=== PATIENT | male | born 1935 | race Caucasian/White ===

== ENCOUNTER → 2017-10-07 09:52 | Outpatient (CLI) | payer MEDICARE, BC, SELFPAY ==
--- NOTE | 2017-10-07 | DI.RAD.S_ITS ---
PROCEDURE: XR CERVICAL SPINE 2V OR 3V INDICATIONS: RADICULOPATHY TECHNIQUE: 3 view(s) of the cervical spine were acquired. COMPARISON: None. FINDINGS: Bones: No fractures or dislocations to the C7 level. The lateral masses of C1 appear intact on the odontoid view. No suspicious bony lesions. Prominent degenerative changes are seen, with moderate to severe disc space narrowing at the C3-C4, C5-C6, C6-C7, and C7-T1 levels. Moderate disc space narrowing is seen at C2-C3 and C4-C5. A degree of bony bridging can be seen at each cervical level. Soft tissues: No prevertebral soft tissue swelling. The visualized lung apices are unremarkable. IMPRESSION: Prominent cervical spine degenerative changes are seen. Dictated by: Samuel Miller M.D. on 10/07/2017 at 9:58 Approved by: Samuel Miller M.D. on 10/07/2017 at 9:59
== END ==
PROVIDERS: PCP Family Medicine; Visit Provider Family Medicine
DX: M50.11 Cervical disc disorder with radiculopathy, high cervical region (principal)
CPT/HCPCS: 72040

== ENCOUNTER → 2018-07-01 09:41 | Outpatient (CLI) | payer MEDICARE, BC, SELFPAY ==
--- NOTE | 2018-07-01 | DI.NM.S_ITS ---
PROCEDURE: [place] BONE 3 PHASE RADIOPHARMACEUTICAL: 21.6 mCi Tc-99m MDP IV. INDICATIONS: STATUS POST TOTAL REPLACEMENT TECHNIQUE: Multiple bone scintigrams were obtained after intravenous injection of Tc-99m MDP, including flow, blood pool, and delayed images centered to the region of interest. COMPARISON: [place], [place], BONE SCAN THREE PHASE, 05/25/2017, 10:30. FINDINGS: Patient is status post bilateral total knee arthroplasty. Flow and blood pool images demonstrates symmetrical vascular activity around the knees with no focal area of abnormal increased uptake. Delayed phase again shows photopenia around bilateral knee joints consistent with prosthesis. Low level activity around bilateral kidneys are again seen consistent with postsurgical stress reaction. IMPRESSION: No significant changes from previous study. No nuclear medicine evidence of hardware loosening. Symmetric appearing stress reaction around bilateral knee prosthesis. Dictated by: Uriel Petit M.D. on 07/01/2018 at 16:15 Approved by: Uriel Petit M.D. on 07/01/2018 at 16:18
== END ==
PROVIDERS: PCP Family Medicine; Visit Provider Orthopaedic Surgery
DX: M25.552 Pain in left hip (principal); Z96.653 Presence of artificial knee joint, bilateral; Z96.642 Presence of left artificial hip joint
CPT/HCPCS: 78315; A9503

== ENCOUNTER → 2021-12-16 12:18 | Outpatient (CLI) | payer MEDICARE, BC, SELFPAY ==
--- NOTE | 2021-12-16 12:20 | DI.MRI.S_ITS ---
PROCEDURE: MR FEMUR LT WO CON INDICATIONS: LEFT IT BAND SYNDROME TECHNIQUE: Noncontrast coronal, axial, and sagittal T1 spin echo and STIR through the left femur. COMPARISON: [place], [place], [place] BONE 3 PHASE, 07/01/2018, 10:02. [facility] [place], [place], XR PELVIS WITH LATERAL HIP LEFT, 04/28/2021, 14:24. FINDINGS: Image quality: Images are mildly degraded by expected metal artifact related to the left hip and bilateral knee prostheses despite the use of metal artifact reduction sequences. Diagnostic information is obtained. Bones: Postsurgical changes are seen from left total hip arthroplasty with expected metal artifact despite the use of metal artifact reduction sequences. Mild contour abnormality is seen along the fibular shaft at the level of the distal prosthesis tip. There is surrounding T2 weighted hyperintense periosteal signal at the same level. No discrete fracture line is seen. The distal femoral shaft is normal in signal intensity. Postsurgical changes also seen from bilateral knee arthroplasties with associated metal artifact. Degenerative changes are seen in the right hip. Soft tissues: Mild T2-hyperintense signal is seen within the left biceps femoris muscle as well as the vastus lateralis muscle. There is grade 2 fatty infiltration of the semimembranosus muscle. Increased T2-weighted signal is also seen within the anterior tibialis muscle. There is a moderate left knee effusion. No large left hip effusion or periarticular mass identified given metal artifact. Multiple diverticula are seen within the included colon. IMPRESSION: 1. Postsurgical changes from left hip arthroplasty with expected metal artifact that obscures adjacent structures. Mild cortical contour abnormality is seen in the left femoral shaft at the level of the distal femoral tip with mild surrounding periosteal new bone formation. Findings are suspicious for loosening of the femoral prosthesis with osseous remodeling. No definite osseous fracture identified. 2. [id number] signal within the lateral left thigh musculature may be reactive or secondary to low-grade muscle strains versus possibly mild or early denervation changes. No mass is seen along the course of the sciatic nerve. 3. No significant fluid or edema along the iliotibial band. 4. Postsurgical changes from bilateral knee arthroplasties. Moderate nonspecific left knee effusion. 5. Moderate to severe right hip osteoarthrosis. Dictated by: Andrei Roberts M.D. on 12/16/2021 at 14:32 Approved by: Andrei Roberts M.D. on 12/16/2021 at 14:44
== END ==
PROVIDERS: PCP Family Medicine; Referring Provider Physical Medicine & Rehabilitation; Visit Provider Physical Medicine & Rehabilitation
DX: M76.32 Iliotibial band syndrome, left leg (principal); M16.11 Unilateral primary osteoarthritis, right hip; Z96.642 Presence of left artificial hip joint
CPT/HCPCS: 73718

== ENCOUNTER 2023-01-13 22:08 | Emergency (ER) | payer MEDICARE, BC, SELFPAY ==
--- NOTE | 2023-01-13 22:09 | DI.CT.S_ITS ---
PROCEDURE: CT CERVICAL SPINE WO CON INDICATIONS: fall with head injury TECHNIQUE: Noncontrast 3 mm thick sections acquired from the skull base to the T4 level. Sagittal and coronal reformats were then constructed. For radiation dose reduction, the following was used: automated exposure control, adjustment of mA and/or kV according to patient size. COMPARISON: None. FINDINGS: Bones: Multilevel degenerative changes of the cervical spine. No acute cervical spine fracture identified Soft tissues: Prevertebral soft tissues are normal in thickness. No paravertebral hematomas. No apical pneumothoraces. IMPRESSION: No acute cervical spine fracture identified Dictated by: Andrei Jackson M.D. on 01/13/2023 at 23:01 Approved by: Andrei Jackson M.D. on 01/13/2023 at 23:05
--- NOTE | 2023-01-13 22:09 | DI.CT.S_ITS ---
PROCEDURE: CT FACIAL BONES WO CON INDICATIONS: fall with head/face injury TECHNIQUE: Noncontrast 2.5 mm thick axial images acquired from the mandible through the frontal sinuses, with coronal and sagittal reformatting. For radiation dose reduction, the following was used: automated exposure control, adjustment of mA and/or kV according to patient size. COMPARISON: [facility], CT, CT HEAD/BRAIN WO CON, 01/13/2023, 22:14. FINDINGS: Bones and teeth: Acute appearing minimally displaced nasal arch fracture. Orbital wolff are intact. Sinus wolff show no fracture or deformity. Visualized portions of the mandible demonstrate no fractures or subluxation. Zygomatic arches are intact. Pterygoid plates are intact. Sinuses: Paranasal sinuses are aerated, without fluid levels. Mastoid air cells are aerated. IMPRESSION: Acute appearing minimally displaced nasal arch fracture. Dictated by: Andrei Jackson M.D. on 01/13/2023 at 22:56 Approved by: Andrei Jackson M.D. on 01/13/2023 at 23:01
--- NOTE | 2023-01-13 22:09 | DI.CT.S_ITS ---
PROCEDURE: CT HEAD/BRAIN WO CON INDICATIONS: fall with head injury TECHNIQUE: Noncontrast 4.5 mm thick angled axial sections acquired from the foramen magnum to the vertex, with coronal and sagittal reformats. For radiation dose reduction, the following was used: automated exposure control, adjustment of mA and/or kV according to patient size. COMPARISON: None. FINDINGS: CSF spaces: Basal cisterns are patent. No extra-axial fluid collections. The ventricles are symmetric in size and shape. Brain: No intracranial bleeds or masses. There is cerebral volume loss for age, with resultant ventricular and sulcal prominence. There are periventricular and deep white matter chronic small vessel ischemic changes. There is intracranial internal carotid artery atherosclerosis. Skull and face: Calvarium appear intact, without suspicious lesions. Sinuses: Visualized sinuses and mastoids are clear. IMPRESSION: No intracranial hemorrhage or other acute intracranial abnormality. Dictated by: Andrei Jackson M.D. on 01/13/2023 at 22:40 Approved by: Andrei Jackson M.D. on 01/13/2023 at 22:45
[2023-01-13 22:10] VITALS: BP 168/88
[2023-01-13 22:11] VITALS: PULSE 73; O2SAT 94
[2023-01-13 22:15] VITALS: BP 168/88; PULSE 71; RESP 17; TEMP 36.3; O2SAT 94; BMI 30.1
[2023-01-13 22:30] VITALS: BP 154/82; PULSE 66; RESP 22; O2SAT 97
--- NOTE | 2023-01-13 22:57 | DI.RAD.S_ITS ---
PROCEDURE: XR WRIST RT 2V INDICATIONS: fall with pain in right wrist TECHNIQUE: 2 views of the wrist were acquired. COMPARISON: None. FINDINGS: Bones: Acute minimally displaced fracture of distal ulna. First CMC and STT joint degenerative changes present. Soft tissues: No suspicious soft tissue calcifications. IMPRESSION: Acute minimally displaced distal ulnar fracture. Dictated by: Andrei Jackson M.D. on 01/14/2023 at 0:23 Approved by: Andrei Jackson M.D. on 01/14/2023 at 0:29
[2023-01-13 23:00] VITALS: BP 150/83; PULSE 66; RESP 19; O2SAT 97
[2023-01-13 23:30] VITALS: BP 152/84; PULSE 67; RESP 26
[2023-01-13] MEDS: LIDOCAINE 2% W/EPI INJ 20 ML (23:44)
--- NOTE | 2023-01-13 23:51 | ED.FALL ---
HPI - Fall General Chief Complaint: Fall Stated Complaint: GLF Time Seen by Provider: 01/13/23 22:09 Source: patient and EMS Mode of arrival: EMS History of Present Illness HPI Narrative: 79-year-old male former smoker presents by EMS for evaluation of injury suffered as a consequence of a mechanical ground level fall just prior to arrival. He states that he was walking outside and got his feet caught up under him and fell forward and struck his face on the ground. He does not take anticoagulants and did not lose consciousness. He is had no nausea or vomiting and is not confused. He denies headache or blurred vision or trouble with speech. He has no neck or back pain. He denies shoulder or elbow pain. He does have some right wrist pain. He is activated as a modified trauma given age and fall with suspected injury Related Data Previous Rx's Medication Instructions Recorded cephalexin 500 mg capsule 500 mg PO Q6H 7 days #28 caps 01/14/23 Allergies Allergy/AdvReac Type Severity Reaction Status Date / Time No Known Drug Allergies Allergy Verified 01/13/23 22:16 Review of Systems Review of Systems Narrative: GENERAL: Denies chills, fatigue, malaise, fever, sweats. HEENT: Denies sinus pain, ear pain, sore throat, difficulty swallowing, dizziness. RESPIRATORY: Denies dyspnea, cough, wheezing, hemoptysis, sputum. CARDIOVASCULAR: Denies chest pain, palpitations, orthopnea, edema, GASTROINTESTINAL: Denies nausea, vomiting, abdominal pain, diarrhea, constipation, melena. : Denies dysuria, frequency, incontinence, hematuria, urinary retention. MUSCULOSKELETAL: See HPI SKIN: Denies rash, skin lesions, or other NEUROLOGIC: Denies weakness, headache, numbness, change in speech, confusion, seizures, incoordination. PSYCHIATRIC: No concerning psychosocial issues. 12 point review of systems is negative except for those stated above Patient History Social History Smoking Status: Former smoker Smoking Status: Former smoker alcohol intake frequency: a few times a week Substance Use Type: does not use Exam Narrative Exam Narrative: GENERAL: [87] year old patient appears stated age. Well-developed patient, in mild distress. GCS 15 though he is hard of hearing HEAD: Abrasions on forehead, a 4 cm stellate shaped laceration in the central forehead and a smaller 0.5 cm laceration over the bridge of the nose EYES: Pupils equal round and reactive. No hyphema Extraocular motions intact. No scleral icterus. No injection or drainage. ENT: Dried blood in bilateral nares, no nasal septal hematoma, no obvious deformity, he is able to breathe through both nostrils. Throat without erythema, tonsillar hypertrophy or exudate. Airway patent. NECK: Trachea midline. Non tender, in C-collar CARDIOVASCULAR: Regular rate and rhythm without murmurs, gallops, or rubs. RESPIRATORY: Clear to auscultation. Breath sounds equal bilaterally. No wheezes, rales, or rhonchi. GASTROINTESTINAL: Abdomen soft, non-tender, nondistended. EXTREMITIES: Full but painful range of motion of right wrist with no obvious deformity No edema or joint tenderness. BACK: Nontender without deformity or crepitance. No flank tenderness. NEURO: AOx3. SKIN: No rash or erythema of visible areas Initial Vital Signs Initial Vital Signs: Vital Signs Temperature 97.4 F L 01/13/23 22:15 Pulse Rate 71 01/13/23 22:15 Respiratory Rate 17 01/13/23 22:15 Blood Pressure 168/88 H 01/13/23 22:15 Pulse Oximetry 94 01/13/23 22:15 Oxygen Delivery Method Room Air 01/13/23 22:15 Procedures Laceration Repair Laceration 1: Site: face Size (cm): 4 Description: stellate Depth: simple, single layer Local Anesthetic: lidocaine 1% Amount of anesthesia used (mL): 4 Pre-repair: wound explored and cleansed with chlorhexadine Skin layer closed with: nylon Skin layer suture size: 6-0 Number of sutures: 6 Technique: simple, interrupted Laceration 2: Site: face (bridge of nose) Size (cm): 0.5 Description: linear Depth: simple, single layer Local Anesthetic: lidocaine 1% Amount of anesthesia used (mL): 2 Pre-repair: wound explored and cleansed with chlorhexadine Skin layer closed with: nylon Skin layer suture size: 6-0 Number of sutures: 1 Technique: simple, interrupted Orthopedic Splinting/Casting Injury #1: Side: right Upper Extremity Injury Location: wrist Upper Extremity Immobilizer: sugar tong splint Post splinting neuro exam: intact Post splinting vascular exam: intact Placed by: Nursing Course Orders Ordered: ED Orders 01/13/23 22:09 CT cervical spine wo con Stat CT facial bones wo con Stat CT head/brain wo con Stat 01/13/23 22:57 XR wrist RT 2V Stat Vital Signs Vital signs: Vital Signs - 8 hr 01/13/23 22:15 Temperature 97.4 F L Pulse Rate 71 Respiratory Rate 17 Blood Pressure 168/88 H Pulse Oximetry 94 Oxygen Delivery Method Room Air MDM - Fall MDM Narrative Medical decision making narrative: [87] year old patient presents with minor injuries from fall Multiple etiologies for patient's symptoms considered including, but not limited to: [Intracranial hemorrhage versus skull fracture versus nasal fracture versus lacerations versus wrist fracture versus contusion versus sprain versus other] Prior Charts reviewed in our EMR Primary Historian: patient Imaging reviewed: CT of head without intracranial hemorrhage, C-spine without fracture or dislocation, facial bones notes nasal bone fracture Patient with reassuring history and physical exam, no significant injuries, there is a small laceration overlying the nasal fracture hence the decision to put him on antibiotics. He is awake, alert and oriented and appropriate for discharge Findings and discharge diagnosis discussed with patient/family followed by verbalization of understanding Return precautions discussed with patient/family whom verbalize understanding of diagnosis and plan Discharge Plan Departure Patient Disposition: Home Clinical Impression: Complex laceration of face, Open fracture nasal bone, Fracture of distal end of ulna Instructions: How to Prevent Falls Activity Restrictions/Additional Instructions: *You have been diagnosed with [fall with facial laceration and small open nasal fracture, also small nondisplaced right distal ulna fracture *What to do: *Please continue to take your regular medications as directed. [x ] New medication prescriptions sent to your pharmacy: [Maint ] [ ] New medication written as a paper prescription [ ] No new medications given * Please keep the wound clean and dry to the best of your ability. Please monitor for signs of infection such as redness to the skin or increasing pain. Have the sutures/adrian removed by your doctor in about 7 days. If you are unable to get into your doctor, we would be happy to remove the sutures/adrian in that same timeframe. *Please follow up with [Marita ] of [facility] in 2-3 days, call for an appointment. Let them know you were seen in the Emergency Department and that we ask that you be seen in follow up. We will electronically transmit a record of today's note if your PCP is in our system *Return to Emergency Department if you should have any new, worsening or concerning symptoms, such as [worsening pain, significant swelling, cold extremities, numbness, tingling, weakness or other bothersome symptoms Splint Care: Keep splint clean and dry. Elevated affected body part to decrease swelling. OK to use ice pack on the affected body part. Use for 15-20 minutes each time, for 5-6x per day. If you develop worsening pain, numbness, tingling, discoloration of the affected body part, loosen the splint by loosening the ODIN wrap, and either see your doctor for an urgent re-assessment, or return to the Emergency Department. Return to the Emergency Department for any new or worsening symptoms. Prescriptions: New cephalexin 500 mg capsule 500 mg PO Q6H 7 Days Qty: 28 0RF Referrals: Rock Montenegro DO [Primary Care Provider] - Dean Kirkland MD [Physician] - Stand Alone Forms: Patient Portal/API
[2023-01-14] VITALS: BP 151/82; PULSE 67; RESP 22; O2SAT 99
[2023-01-14 00:30] VITALS: BP 149/83; PULSE 65; RESP 24; O2SAT 97
[2023-01-14 01:00] VITALS: BP 140/68; PULSE 64; RESP 21; O2SAT 97
[2023-01-14 01:13] VITALS: TEMP 36.6
== END 2023-01-14 01:15 | disposition home or self-care (01) ==
PROVIDERS: Emergency Provider Emergency Medicine; PCP Family Medicine
DX: S02.2XXA Fracture of nasal bones, initial encounter for closed fracture (principal); S01.21XA Laceration without foreign body of nose, initial encounter; S52.601A Unspecified fracture of lower end of right ulna, initial encounter for closed fracture; W18.30XA Fall on same level, unspecified, initial encounter
CPT/HCPCS: 12013; 29125; 70450; 70486; 72125; 73100; 99282; 99284

== ENCOUNTER → 2023-03-10 10:34 | Outpatient (CLI) | payer MEDICARE, BC, SELFPAY ==
[2023-03-10 11:40] LABS: C-Reactive Protein Quant 0.7 mg/dL (<1.0); Erythrocyte Sedimentation Rate 3 MM/HR (0-15)
== END ==
PROVIDERS: PCP Family Medicine; Referring Provider Orthopaedic Surgery Adult Reconstructive Orthopaedic Surgery; Visit Provider Orthopaedic Surgery Adult Reconstructive Orthopaedic Surgery
DX: R70.0 Elevated erythrocyte sedimentation rate (principal); R79.82 Elevated C-reactive protein (CRP)
CPT/HCPCS: 36415; 85651; 86140

== ENCOUNTER → 2023-03-24 10:44 | Outpatient (CLI) | payer MEDICARE, BC, SELFPAY ==
[2023-03-24 11:40] LABS: Add Manual Diff / Slide Review NO; Basophils Absolute Auto 0 /uL (0-100); Basophils Percent Auto 0.4 % (0-2); Eosinophils Absolute Auto 0 /uL (0-450); Eosinophils Percent Auto 1.4 % (2-4); Hematocrit 36.7 % (41-53); Hemoglobin 12.3 g/dL (13.5-17.5); Lymphocytes Absolute Auto 400 /uL (1100-4500); Lymphocytes Percent Auto 12.5 % (25-40); Mean Corpuscular HGB Conc 33.5 % (30-36); Mean Corpuscular Hemoglobin 29.4 PG (26-34); Mean Corpuscular Volume 87.7 fL (80-100); Monocytes Absolute Auto 300 /uL (0-900); Monocytes Percent Auto 9.1 % (3-14); Neutrophils Absolute Auto 2100 /uL (1500-7000); Neutrophils Percent Auto 76.6 % (50-75); Platelet Count 155 X10^3/uL (150-400); Red Blood Cell Count 4.19 X10^6/uL (4.5-5.9); Red Cell Distribution Width 15.3 % (11.6-14.8); White Blood Cell Count 2.8 X10^3/uL (4.5-11.0)
[2023-03-24 12:00] LABS: Hemoglobin A1C% w Est Avg Glu 5.3 % (4.0-6.0)
[2023-03-24 12:06] LABS: Erythrocyte Sedimentation Rate 4 MM/HR (0-15)
[2023-03-24 13:51] LABS: Albumin 4.2 g/dL (3.5-5.0); BUN Creatinine Ratio 24.7 (6-22); Blood Urea Nitrogen 19 mg/dL (9-20); Calcium 9.2 mg/dL (8.4-10.2); Carbon Dioxide 27 mmol/L (22-32); Chloride 105 mmol/L (98-107); Estimated Glomerular Filt Rate > 60 mL/min (>60); Glucose 93 mg/dL (80-110); HEMOLYSIS < 15 (0-50); Potassium 4.2 mmol/L (3.4-5.1); Sodium 139 mmol/L (137-145)
[2023-03-24 13:59] LABS: Prealbumin 16.7 mg/dL (17.6-36.0)
== END ==
PROVIDERS: PCP Family Medicine; Referring Provider Orthopaedic Surgery Adult Reconstructive Orthopaedic Surgery; Visit Provider Orthopaedic Surgery Adult Reconstructive Orthopaedic Surgery
DX: Z01.818 Encounter for other preprocedural examination (principal); E55.9 Vitamin D deficiency, unspecified; R73.9 Hyperglycemia, unspecified; R77.0 Abnormality of albumin; Z01.812 Encounter for preprocedural laboratory examination; R70.0 Elevated erythrocyte sedimentation rate; R79.82 Elevated C-reactive protein (CRP)
CPT/HCPCS: 36415; 80048; 82040; 82306; 83036; 84134; 85025; 85651; 86140; 93005

== ENCOUNTER → 2023-04-12 12:56 | Outpatient (CLI) | payer MEDICARE, BC, SELFPAY | PROVIDERS: PCP Family Medicine; Referring Provider Orthopaedic Surgery Adult Reconstructive Orthopaedic Surgery; Visit Provider Orthopaedic Surgery Adult Reconstructive Orthopaedic Surgery | DX: T56.2X4A Toxic effect of chromium and its compounds, undetermined, initial encounter (principal) | CPT/HCPCS: 36415; 82495; 83018 ==

== ENCOUNTER 2023-04-30 11:50 | Inpatient (IN) | payer MEDICARE, BC, SELFPAY ==
[2023-04-22 12:39] VITALS: BMI 30.4
[2023-04-30] VITALS (20 sets, daily range): BP systolic 92–148; BP diastolic 49–83; PULSE 61–73; RESP 13–21; TEMP 35.7–36.3; O2SAT 94–99; BMI 30.4; BMI 28.9
--- NOTE | 2023-04-30 | DI.RAD.S_ITS ---
PROCEDURE: XR HIP W PEL IF DONE LT 2V INDICATIONS: TOTAL HIP REVISION TECHNIQUE: 4 views of the hip were acquired. COMPARISON: [facility], CR, XR HIP W PEL IF DONE LT 2V, 04/30/2023, 14:39. [facility] [place], [place], XR FEMUR 2+ VIEWS LEFT, 04/29/2023, 11:03. FINDINGS: Bones: Moderate right hip arthrosis, partially seen. Left hip arthroplasty revision, with expected positioning, with lucency of the central left femur and with surrounding bone fragments. Soft tissues: Postsurgical changes. IMPRESSION: Postsurgical changes following left hip arthroplasty revision. Dictated by: Kranthi Zuniga M.D. on 04/30/2023 at 21:12 Approved by: Kranthi Zuniga M.D. on 04/30/2023 at 21:14
--- NOTE | 2023-04-30 06:00 | DI.RAD.S_ITS ---
PROCEDURE: XR HIP W PEL IF DONE LT 2V INDICATIONS: intra op TECHNIQUE: Multiple views of the hip were acquired. COMPARISON: None. Findings and impression: Multiple intraoperative fluoroscopic images were obtained for left hip arthroplasty revision. Please see operative note for full details. Dictated by: Kranthi Zuniga M.D. on 04/30/2023 at 21:34 Approved by: Kranthi Zuniga M.D. on 04/30/2023 at 21:35
[2023-04-30] MEDS: ACETAMINOPHEN 325 MG TABLET 975 MG PO (12:41)
[2023-04-30] MEDS: MELOXICAM 7.5 MG TABLET PO (12:42)
[2023-04-30] MEDS: LACTATED RINGERS 1,000 ML 42 ML IV ×4 (12:44→16:57)
[2023-04-30] MEDS: VANCOMYCIN 1,000 MG/200 ML PIGGYBACK 200 MG IV (13:00)
--- NOTE | 2023-04-30 13:05 | PM.PREOP ---
Pre-operative Note Interval Note History & Physical reviewed/Exam performed by Physician: Yes Changes to H&P: No
[2023-04-30] MEDS: CEFAZOLIN 2 GM/100 ML PREMIX 100 ML IV (14:00)
[2023-04-30] MEDS: TRANEXAMIC ACID 1,000 MG VIAL 1000 MG INJ ×2 (14:05→18:40)
--- NOTE | 2023-04-30 14:41 | SUR.OPER ---
Patient supine on padded [place] table, one arm on padded arm board at <90, other arm padded and secured with tape across patient's chest, both legs secured in padded traction boots and positioned per surgeon, padded post at patient's groin, pressure points checked and padded.
[2023-04-30] MEDS: ROPIVACAINE/EPI/CLONIDINE/KET 50 ML SYRINGE INJ (14:50)
[2023-04-30] MEDS: CEFAZOLIN VIAL 1 GM in SODIUM CHLORIDE 0.9% 100 ML IV (18:00)
[2023-04-30 19:04] LABS: Hematocrit 30.9 % (41-53); Hemoglobin 10.5 g/dL (13.5-17.5); Mean Corpuscular HGB Conc 33.9 % (30-36); Mean Corpuscular Hemoglobin 29.4 PG (26-34); Mean Corpuscular Volume 86.6 fL (80-100); Platelet Count 131 X10^3/uL (150-400); Red Blood Cell Count 3.56 X10^6/uL (4.5-5.9); Red Cell Distribution Width 15.2 % (11.6-14.8); White Blood Cell Count 7.1 X10^3/uL (4.5-11.0)
--- NOTE | 2023-04-30 20:15 | PM.OP.1 ---
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 Revision left total hip arthroplasty with acetabular component liner exchange from polyethylene to modular dual mobility and femoral stem exchange 2. Fixation of left femoral fracture with cerclage cables Same procedure as scheduled: No Surgeon: Dean Kirkland Seat Maker: Valentine Farrar Anesthesia Type: General, Spinal and Local Operative Notes Findings: Trunnionosis with metal debris and displaced femoral fracture Estimated Blood Loss (mL): 1,450 Blood products transfused: packed red blood cells Procedure in detail: This 87-year-old male patient initially presented to my clinic with an ulna fracture. I cared for the ulna fracture with cast treatment. During follow-up for his ulna fracture he mentioned difficulties using a walker. He stated that he used a walker because of severe pain in his left thigh after a total knee arthroplasty and a subsequent revision for thigh pain with polyethylene component exchange. I reviewed his knee radiographs at that time which showed an appropriately sized and fixed total knee arthroplasty but an obvious left shorter than right limb length discrepancy on his AP x-ray relative to his other knee. I therefore evaluated his hip radiographs which showed gross loosening of his femoral stem. I counseled him regarding this issue and discussed treatment options with him. I met with him and his family on multiple occasions. He had severe pain secondary to this issue which worsened over the course of my visits with him. He is very active for his age and has maintained significant independence. As an example of this, his family on multiple occasions during his visits with me for his ulna fracture explained to me that their biggest challenge with him was getting him to stop helping with things like yard work while he was allowing his wrist to heal. He had had the surgery done in 2010 at an outside institution. I obtained operative records from that surgery. He had had a MicroPort cup placed with a [place] stem. He had a 44 mm cobalt chromium head. 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 I did obtain inflammatory markers to rule out infection which were normal. I had multiple occasions with him and his family explained the risks and benefits of revision surgery. They wished to proceed. I had him come into clinic the day before the procedure to obtain additional radiographs and these demonstrated progression of a crack in the femur just below the calcar. Review of his prior radiographs demonstrated that this had clearly progressed into progressive varus over time. The patient and his family were met in the preoperative holding area the day of surgery. Additional questions were answered. Informed consent was signed. The operative site was marked. He was wheeled back to the operating room and placed supine on the [place] table. The assistance of a physician physical laboratory assistant was required throughout the case for room set up, soft tissue retraction, wound closure. Without the assistance of a skilled physician physical laboratory assistant the surgery would not have been possible. A Carmichael catheter was placed given the anticipated duration of the surgery. Spinal anesthesia was utilized but general anesthesia was still induced again given the anticipated duration of the surgery. The surgical site was prepped and draped in the usual sterile fashion. Ancef and tranexamic acid were administered. A time-out procedure was performed. I utilized an anterior approach to the hip. I opened up the interval between the rectus and the TFL. I extended this up to the pelvis and released the TFL off of the ilium. I placed retractors over the prosthetic neck inferiorly and superiorly and coagulated the lateral circumflex vessels. I performed a capsulotomy and placed the retractors intracapsularly. I placed tag stitches in the capsule. I noted that there was a calcar fracture consistent with the preoperative radiographs. It displaced prior to me performing any sort of significant manipulation on the hip. I resected abundant scar around the prosthesis. I sent some of this for culture. It had an appearance consistent with metal debris and I noted significant corrosion on the trunnion. I was able to manually disengage the trunnion from the femoral head by internally rotating the hip and impacting it with a mallet. It was unclear whether the Barrera taper was still engaged as the femoral head disengaged extremely easily. I then removed the femoral head from inside the acetabular component. I placed a [place] hook under the proximal femur and hyperextended and adducted the leg. I performed a conjoined tendon release to allow greater mobility. I resected additional scar around the femoral stem. The hip was externally rotated to 140? and retractors were placed over the greater trochanter as well as over the femoral shaft distal to the calcar fracture. Because of the calcar fracture it took a fair amount of time to manipulate the stem into an appropriate position. I was eventually able to position it with an appropriate trajectory for stem removal. The stem was grossly loose and I was able to pull it out with a pair of vice chemical reclamation equipment operator. I then returned to neutral extension and exposed the acetabular component. I placed a retractor over the anterior wall as well as the posterior wall. I used an osteotome to remove the old 44 mm MicroPort polyethylene liner. I did not note any significant metallosis behind the liner in the acetabular component. I vigorously tested the acetabular component and found that it had good stability. I was satisfied with the positioning of the prior cup. I placed a MicroPort modular dual mobility liner. I then returned to the broaching position and placed retractors over the greater trochanter and over the femoral shaft distal to the calcar fracture which had been present preoperatively. I attempted to pass a ball-tipped guidewire down the canal but it consistently fell into the lateral defect where the stem had tipped into varus and eroded the lateral cortex. I placed a bend on the guidewire and attempted to tap this down medially but it ran into a pedestal. I therefore utilized a cement extraction tool which had a long curved end in order to enrique that pedestal under fluoroscopic guidance. I was able to create a hole in the pedestal and then passed the ball-tipped guidewire through that hole. Again under fluoroscopic guidance I passed flexible reamers down to the femoral diaphysis bypassing the area where the stem had eroded the lateral cortex. I used flexible reamers from 8 mm increasing by 1 mm increments up to 16 mm. I then transitioned to rigid reamers for the Depuy reclaim distal body. I began with a 14 mm Reamer and reamed up by 1 mm increments to 21 mm. I used fluoroscopic guidance throughout this process to ensure that I was aiming down the canal and not drifting into the lateral defect in the cortex. I achieved good chatter with the 21 mm Reamer. I was utilizing the 190 mm Reamer and noted that this intersected the tip of the greater trochanter at 105 mm, representing the longest proximal body. I irrigated the femoral canal and impacted down a 21 mm x 190 mm distal stem. I utilized fluoroscopy to ensure that I had impacted all the way down. It achieved robust fixation. I utilized a proximal Reamer to prepare the area around the greater trochanter for a proximal body. I placed a 105 mm trial proximal body with a +1.5 head and a dual mobility trial on the distal body and removed all retractors. I returned to neutral extension and attempted to reduce the hip. There was too much tension and I could not reduce it. I therefore returned to the broaching position and downsized to a 95 mm proximal body. I was able to reduce the hip with that size proximal body. The patient had a 5 cm limb length discrepancy preoperatively. I intended to correct as much of this as possible as this was entirely due to the stem loosening secondary to metallosis. I had radiographs from 2017 indicating appropriate limb lengths at that time. As all of this shortening had occurred over the subsequent years, I felt that the patient would be able to accommodate appropriate limb lengths without sustaining a foot drop. I brought in fluoroscopy for evaluation of my trials. I was unable to assess leg length through the lesser trochanter because of his calcar fracture which had been present preoperatively. I therefore placed a guidewire and measured the relative heights of the greater trochanters. I obtained fluoroscopic images with the guidewire at the height of both the contralateral and ipsilateral greater trochanter and gauged this against the obliquity of the pelvis. It appeared that this was grossly parallel to a trans ischial line, indicating that leg length was likely grossly appropriate. Offset likewise appeared appropriate. The patient's hip was stable with 90? of external rotation as well as with a 45 degree drop test. I therefore returned to the broaching position, ensuring that traction was off before hyperextended the hip, and removed the trials. I placed a 95 mm proximal body with a standard offset neck. I placed this with the hip in 140? of external rotation and ensured appropriate version. I constructed a dual mobility head with a Depuy 28 mm +1.5 head inside of a MicroPort 46 mm dual mobility outer diameter polyethylene. I ensured that the ceramic head and the dual mobility head had made it appropriately. I impacted the dual mobility head onto a clean dry trunnion. I ensured that it had engaged the Barrera taper appropriately. All retractors were removed and the hip was returned to neutral extension. The hip was reduced. I again tested stability with maximum external rotation and a 45 degree drop test. I also again assessed the femoral canal fill on AP and lateral fluoroscopic images. I then turned my attention to the calcar fracture. It was significantly displaced. There were soft tissue attachments remaining on it which were under significant tension. I passed 2 cerclage cables around the fracture and around the lateral femoral shaft. I tensioned both of these. I vigorously internally and externally rotated the hip to ensure that it maintained good stability. I was satisfied with the stability of the fixation. I obtained final fluoroscopic images demonstrating that the calcar fragment had been captured as well as the final construct. I bathed the wound in a dilute mixture of Betadine and peroxide. I copiously irrigated the wound. I closed the capsule with Vicryl. I closed the TFL fascia including the TFL release that had been performed on the ilium with Stratafix. I closed the fat layer with Quill. I closed the subcutaneous tissues with 2-0 Vicryl. I injected a dilute mixture of ropivacaine epinephrine clonidine and Toradol throughout the wound, ensuring that it remained deep to fascia. I closed the skin with 3-0 Stratafix. I placed Dermabond over the wound. I placed a yung incisional wound VAC. the patient was transferred off of the [place] table onto a stretcher. He awoke from anesthesia without complication. I evaluated him in the PACU and noted intact dorsiflexion and plantar flexion of his hallux and ankle as well as a good dorsalis pedis pulse. Post-operative Plan for aftercare: 1. Patient will be admitted tonight to the ICU. Given the blood loss from the procedure and his age, this will allow better hemodynamic monitoring 2. Weightbearing as tolerated with anterior hip precautions 3. Family is requesting home health physical therapy which I will work with social work to set up 4. Anticipate eventual discharge home 5. Will obtain a CBC in the morning 6. Follow up in 2 weeks at [facility] orthopedics 7. Multimodal pain regimen including NSAIDs, acetaminophen, and cryotherapy. No IV opioids are ordered 8. Detailed postoperative instructions can be found at [email or web address]
--- NOTE | 2023-04-30 22:19 | PM.CN.EICU ---
History of Present Illness Consult details IF CAMERA ACTIVATED, patient seen via real-time interactive audiovisual communication: Camera activated Date Patient Seen: 04/30/23 Chief complaint: INPT Consent obtained for tele-coordinate measuring machine technician care: Yes Patient Location: ICU Provider location (State): [place] Other participants/roles: RN Narrative: 87 y.o. male who is POD #0 from left total hip arthroplasty and left femoral fracture fixation. Patient was hypotensive in PACU w/ non-invasive SBP in 90s and therefore was upgraded to ICU status for post-op observation. He has a previous total L hip arthroplasty in 2010. A/O x3 on RA; hemodynamically stable w/ SBP 130s on initial camera evaluation. 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) History of total left knee replacement (08/18/05) History of total left hip replacement (05/13/10) Social History household members: none Smoking Status: Former smoker alcohol intake: former Current Medications Current Medications Medications: Home Medications amlodipine 5 mg tablet 5 mg PO DAILY 04/22/23 [History Confirmed 04/22/23] atorvastatin 20 mg tablet 20 mg PO BEDTIME 04/22/23 [History Confirmed 04/30/23] desloratadine 5 mg tablet (Clarinex) 5 mg PO DAILY 04/22/23 [History Confirmed 04/22/23] donepezil 5 mg tablet 5 mg PO DAILY 04/22/23 [History Confirmed 04/30/23] finasteride 1 mg tablet 1 mg PO DAILY 04/22/23 [History Confirmed 04/30/23] ibuprofen 200 mg tablet 200 mg PO TID 04/22/23 [History Confirmed 04/30/23] meloxicam 15 mg tablet 15 mg PO DAILY 04/22/23 [History Confirmed 04/30/23] memantine 5 mg tablet 5 mg PO BID 04/22/23 [History Confirmed 04/22/23] sertraline 25 mg tablet 25 mg PO DAILY 04/22/23 [History Confirmed 04/22/23] tamsulosin 0.4 mg capsule 0.8 mg PO BID 04/22/23 [History Confirmed 04/22/23] amlodipine 5 mg tablet 5 mg PO DAILY 04/30/23 [History Confirmed 04/30/23] Visit Medications (administered) Generic Name Dose Route Start Last Admin Trade Name Freq PRN Reason Stop Dose Admin Lactated Ringer's 1,000 mls @ 42 mls/hr 04/29/23 20:30 04/30/23 20:49 Lactated Ringers IV Infused CONT SHELBI Infusion Review of Systems Constitutional Constitutional: Reports system reviewed and no additional complaints, except as documented Gastrointestinal Gastrointestinal: Reports other (no nausea) Exam Vital Signs (past 8 hours): - 04/30/23 19:18 04/30/23 19:18 04/30/23 19:20 Temperature 97.1 F L 97.3 F L Pulse Rate 63 65 73 Respiratory Rate 17 21 16 Blood Pressure 92/53 L 94/51 L 96/49 L Pulse Oximetry 96 94 Oxygen Delivery Method Room Air 04/30/23 19:23 04/30/23 19:28 04/30/23 19:34 Temperature Pulse Rate 64 61 73 Respiratory Rate 13 13 16 Blood Pressure 103/54 L 103/54 L 96/49 L Pulse Oximetry 96 96 94 Oxygen Delivery Method 04/30/23 19:40 04/30/23 19:45 04/30/23 19:50 Temperature Pulse Rate 63 62 63 Respiratory Rate 17 19 20 Blood Pressure 92/53 L 99/53 L 97/56 L Pulse Oximetry 96 96 97 Oxygen Delivery Method Room Air 04/30/23 20:00 04/30/23 20:10 04/30/23 20:19 Temperature Pulse Rate 62 63 64 Respiratory Rate 20 17 16 Blood Pressure 101/55 L 115/60 116/62 Pulse Oximetry 98 98 97 Oxygen Delivery Method Room Air Room Air Room Air 04/30/23 20:30 04/30/23 20:40 04/30/23 20:50 Temperature Pulse Rate 66 65 72 Respiratory Rate 21 14 18 Blood Pressure 119/72 119/67 124/67 Pulse Oximetry 97 99 98 Oxygen Delivery Method Room Air Room Air Room Air 04/30/23 20:58 04/30/23 21:10 04/30/23 21:30 Temperature 96.3 F L Pulse Rate 69 Respiratory Rate 20 Blood Pressure 129/74 139/71 Pulse Oximetry 98 Oxygen Delivery Method Room Air Room Air 04/30/23 22:00 Temperature 96.4 F L Pulse Rate 65 Respiratory Rate 16 Blood Pressure 144/71 H Pulse Oximetry 97 Oxygen Delivery Method Oxygen Delivery Method Room Air Const General: cooperative, healthy appearing and comfortable Resp Effort & Inspection: normal respiratory effort and able to speak in complete sentences Cardio Rate: regular rate Rhythm: regular rhythm Neuro General: patient alert, patient awake, patient oriented x3 and moves all extremities Objective Labs 04/30/23 18:46 Labs: Laboratory Results - last 24 hr 04/30/23 04/30/23 16:40 18:46 WBC 7.1 RBC 3.56 L Hgb 10.5 L Hct 30.9 L MCV 86.6 MCH 29.4 MCHC 33.9 RDW 15.2 H Plt Count 131 L Blood Type A Positive Antibody Screen Negative Crossmatch See Detail Assessment & Plan Assessment and plan (1) Hypotension after procedure: Problem details: RESOLVED--probably normal and was due to anesthesia emergence Status: Acute Plan: -Follow (2) S/P total hip arthroplasty: Problem details: Condition as expected Status: Acute Plan: -Analgesia, diet, weight-bearing, SCDs as per orthopedics Time Spent With Patient Time with patient: less than 30 minutes
[2023-04-30] MEDS: LACTATED RINGERS 1,000 ML 120 ML IV (22:55)
[2023-05-01] VITALS (50 sets, daily range): BP systolic 80–152; BP diastolic 45–74; PULSE 54–72; RESP 14–20; TEMP 35.8–37; O2SAT 92–100
[2023-05-01] MEDS: HYDROCODONE/ACET 5/325 TABLET 1 TAB PO ×2 (00:03→04:01)
--- NOTE | 2023-05-01 00:43 | P.HP_ITS ---
History of Present Illness History of Present Illness Date Patient Seen: 04/30/23 Time Patient Seen: 23:30 Chief complaint: INPT Narrative: Patient is a 87 years old male with a past medical history of hypertension, osteoarthritis status post left hip arthroplasty has been admitted to status post revision left hip arthroplasty and the femoral stem exchange/fixation of left femoral fracture with cerclage cables. There was an estimated blood loss of thousand 450 mL and the received 1 PRBC. Postoperative course was complicated by hypotension needing vasopressin. Eventually the vasopressor has been discontinued but due to the prolonged course of hypotension with the blood loss and needing blood transfusion, patient was admitted to the ICU for further evaluation. Currently denies any chest pain or shortness of breath. Denies any palpitation. Denies any nausea or vomiting. Does have pain in the surgical site. Able to move his extremities and there is no evidence of neurovascular compromise. A 12 point review of system is negative unless otherwise stated in the history of present illness [facility] Medical History Memory loss Right wrist fracture (01/13/23) HLD (hyperlipidemia) HTN (hypertension) Surgical History Hx of arthroscopy of left knee (07/18/12) S/P TURP (status post transurethral resection of prostate) Hx of arthroscopy of left knee (09/26/04) Hx of hernia repair (02/2010) Hx of colonoscopy (10/17/08) Hx of appendectomy (1956) S/P cervical spinal fusion (09/1983) History of carpal tunnel surgery of right wrist (11/2022) Hx of bilateral cataract extraction 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) History of total left knee replacement (08/18/05) History of total left hip replacement (05/13/10) Social History household members: none Smoking Status: Former smoker alcohol intake: former Meds Home Medications and Allergies Home Medications Medication Instructions Recorded Confirmed Type amlodipine 5 mg tablet 5 mg PO DAILY 04/22/23 04/22/23 History atorvastatin 20 mg tablet 20 mg PO BEDTIME 04/22/23 04/30/23 History desloratadine 5 mg tablet 5 mg PO DAILY 04/22/23 04/22/23 History (Clarinex) donepezil 5 mg tablet 5 mg PO DAILY 04/22/23 04/30/23 History finasteride 1 mg tablet 1 mg PO DAILY 04/22/23 04/30/23 History ibuprofen 200 mg tablet 200 mg PO TID 04/22/23 04/30/23 History meloxicam 15 mg tablet 15 mg PO DAILY 04/22/23 04/30/23 History memantine 5 mg tablet 5 mg PO BID 04/22/23 04/22/23 History sertraline 25 mg tablet 25 mg PO DAILY 04/22/23 04/22/23 History tamsulosin 0.4 mg capsule 0.8 mg PO BID 04/22/23 04/22/23 History amlodipine 5 mg tablet 5 mg PO DAILY 04/30/23 04/30/23 History Allergies Allergy/AdvReac Type Severity Reaction Status Date / Time crab Allergy Severe Rash, Verified 04/30/23 12:47 Violently Ill doxazosin Allergy Rash Verified 04/30/23 12:47 Narcotics AdvReac Nausea, Uncoded 04/30/23 12:47 vomiting Review of Systems Review of Systems Narrative: A 12 point review of system is negative unless otherwise stated in the history of present illness Exam Vital Signs (past 8 hours): - 04/30/23 19:18 04/30/23 19:18 04/30/23 19:20 Temperature 97.1 F L 97.3 F L Pulse Rate 63 65 73 Respiratory Rate 17 21 16 Blood Pressure 92/53 L 94/51 L 96/49 L Pulse Oximetry 96 94 Oxygen Delivery Method Room Air 04/30/23 19:23 04/30/23 19:28 04/30/23 19:34 Temperature Pulse Rate 64 61 73 Respiratory Rate 13 13 16 Blood Pressure 103/54 L 103/54 L 96/49 L Pulse Oximetry 96 96 94 Oxygen Delivery Method 04/30/23 19:40 04/30/23 19:45 04/30/23 19:50 Temperature Pulse Rate 63 62 63 Respiratory Rate 17 19 20 Blood Pressure 92/53 L 99/53 L 97/56 L Pulse Oximetry 96 96 97 Oxygen Delivery Method Room Air 04/30/23 20:00 04/30/23 20:10 04/30/23 20:19 Temperature Pulse Rate 62 63 64 Respiratory Rate 20 17 16 Blood Pressure 101/55 L 115/60 116/62 Pulse Oximetry 98 98 97 Oxygen Delivery Method Room Air Room Air Room Air 04/30/23 20:30 04/30/23 20:40 04/30/23 20:50 Temperature Pulse Rate 66 65 72 Respiratory Rate 21 14 18 Blood Pressure 119/72 119/67 124/67 Pulse Oximetry 97 99 98 Oxygen Delivery Method Room Air Room Air Room Air 04/30/23 20:58 04/30/23 21:10 04/30/23 21:30 Temperature 96.3 F L Pulse Rate 69 Respiratory Rate 20 Blood Pressure 129/74 139/71 Pulse Oximetry 98 Oxygen Delivery Method Room Air Room Air 04/30/23 21:30 04/30/23 22:00 04/30/23 23:00 Temperature 96.4 F L Pulse Rate 65 65 Respiratory Rate 16 18 Blood Pressure 144/71 H 148/70 H Pulse Oximetry 97 98 Oxygen Delivery Method Room Air 04/30/23 23:30 05/01/23 00:00 Temperature 96.4 F L Pulse Rate 68 Respiratory Rate 16 Blood Pressure 147/74 H Pulse Oximetry 98 98 Oxygen Delivery Method Room Air Oxygen Delivery Method Room Air Narrative Exam Narrative: Patient is awake alert oriented and able to give a good history. Reports pain at the surgical site. Answered good pulses and neuro vascular intact Objective Labs 04/30/23 18:46 Labs: Laboratory Results - last 24 hr 04/30/23 04/30/23 16:40 18:46 WBC 7.1 RBC 3.56 L Hgb 10.5 L Hct 30.9 L MCV 86.6 MCH 29.4 MCHC 33.9 RDW 15.2 H Plt Count 131 L Blood Type A Positive Antibody Screen Negative Crossmatch See Detail Assessment & Plan Assessment & Plan narrative: Patient is a 87 years old male with a past medical history of hypertension, osteoarthritis status post left hip arthroplasty has been admitted to status post revision left hip arthroplasty and the femoral stem exchange/fixation of left femoral fracture with cerclage cables. There was an estimated blood loss of thousand 450 mL and the received 1 PRBC. Postoperative course was complicated by hypotension needing vasopressin. Eventually the vasopressor has been discontinued but due to the prolonged course of hypotension with the blood loss and needing blood transfusion, patient was admitted to the ICU for further evaluation. Currently denies any chest pain or shortness of breath. Denies any palpitation. Denies any nausea or vomiting. Does have pain in the surgical site. Able to move his extremities and there is no evidence of neurovascular compromise. 1. Hypotension postoperative following revision hip arthroplasty on the left side. Watch for any neurovascular compromise closely. Hold the home blood pressure medications and trend for now. Blood pressures have started to improve and monitor closely. 2 status post left hip arthroplasty. Pain control with [place] for moderate pain and morphine for severe pain. Ambulate as tolerated 3 mild cognitive decline on Aricept/Namenda. Patient is now oriented X3 and following commands 4. BPH on Flomax to resume the home dose 5 depression resume home Zoloft 6 DVT prophylaxis SCDs for now. Defer chemoprophylaxis per orthopedic recommendation. Trend the hemoglobin closely Patient will be admitted under observation status. He is a full code Patient was evaluated with the help of video communication device. The provider is located in [facility] VTE Deep Vein Thrombosis/Pulmonary Embolism Present on Admission: Yes
[2023-05-01] MEDS: MORPHINE 4 MG/ML INJ 2 MG IV (01:11)
[2023-05-01] MEDS: MEMANTINE HCL 5 MG TABLET PO ×3 (02:51→20:52)
[2023-05-01] MEDS: ATORVASTATIN 20 MG TABLET PO ×2 (02:51→20:52)
[2023-05-01] MEDS: ACETAMINOPHEN 325 MG TABLET 650 MG PO ×4 (02:51→20:53)
[2023-05-01] MEDS: LACTATED RINGERS 1,000 ML 100 ML IV (02:52)
[2023-05-01] MEDS: ASPIRIN EC 81 MG TABLET PO ×3 (02:52→20:52)
[2023-05-01] MEDS: DOCUSATE 100 MG CAPSULE PO ×3 (02:52→20:52)
[2023-05-01] MEDS: CEFAZOLIN 2 GM/100 ML PREMIX 100 ML IV ×2 (02:52→09:38)
[2023-05-01] MEDS: TAMSULOSIN 0.4 MG CAPSULE 0.8 MG PO ×3 (02:52→20:53)
[2023-05-01 06:58] LABS: Add Manual Diff / Slide Review NO; Basophils Absolute Auto 0 /uL (0-100); Eosinophils Absolute Auto 0 /uL (0-450); Hematocrit 27.4 % (41-53); Hemoglobin 9.3 g/dL (13.5-17.5); Lymphocytes Absolute Auto 200 /uL (1100-4500); Lymphocytes Percent Auto 2.1 % (25-40); Mean Corpuscular HGB Conc 33.9 % (30-36); Mean Corpuscular Hemoglobin 29.1 PG (26-34); Monocytes Absolute Auto 1000 /uL (0-900); Neutrophils Absolute Auto 9700 /uL (1500-7000); Neutrophils Percent Auto 88.9 % (50-75); Platelet Count 118 X10^3/uL (150-400); Red Blood Cell Count 3.18 X10^6/uL (4.5-5.9); Red Cell Distribution Width 15.2 % (11.6-14.8); White Blood Cell Count 10.9 X10^3/uL (4.5-11.0)
[2023-05-01 07:09] LABS: Alanine Aminotransferase 27 IU/L (<50); Albumin 2.9 g/dL (3.5-5.0); Albumin Globulin Ratio 1.4 (1.0-2.8); Alkaline Phosphatase 41 U/L (38-126); Aspartate Aminotransferase 86 IU/L (17-59); BUN Creatinine Ratio 26.3 (6-22); Bilirubin Total 0.6 mg/dL (0.2-1.3); Blood Urea Nitrogen 20 mg/dL (9-20); Calcium 8.2 mg/dL (8.4-10.2); Carbon Dioxide 25 mmol/L (22-32); Chloride 107 mmol/L (98-107); Estimated Glomerular Filt Rate > 60 mL/min (>60); Globulin 2.1 g/dL (1.7-4.1); Glucose 134 mg/dL (80-110); HEMOLYSIS < 15 (0-50); Magnesium 1.9 mg/dL (1.6-2.3); Phosphorous 4.1 mg/dL (2.3-3.7); Potassium 4.5 mmol/L (3.4-5.1); Sodium 137 mmol/L (137-145)
[2023-05-01] MEDS: DONEPEZIL 5 MG TABLET PO (08:45)
[2023-05-01] MEDS: LORATADINE 10 MG TABLET PO (08:46)
[2023-05-01] MEDS: SERTRALINE 50 MG TABLET 25 MG PO (08:46)
[2023-05-01] MEDS: MELOXICAM 7.5 MG TABLET 15 MG PO (08:46)
[2023-05-01] MEDS: polyethylene glycoL 3350 17 GM POWD.PACK PO (08:46)
[2023-05-01] MEDS: LACTATED RINGERS 500 ML 1000 ML IV (09:34)
--- NOTE | 2023-05-01 10:03 | PM.PNPO.1 ---
Subjective Subjective Date Patient Seen: 05/01/23 Time Patient Seen: 08:45 Interval history: Pt interviewed and examined with Dr Kirkland this morning. He is sitting up in bed, finishing breakfast with family in the room. He has a h/o left ANDREW that was noted to be loose; plans for revision were made, and in the interval he suffered a periprosthetic fracture. He was taken to the OR yesterday for elective revision of his hip: this included exchange of the femoral stem, replacement of the acetabular polyethylene liner with a dual-mobility liner, and placement of cerclage wires to stabilize the periprosthetic fracture. He had 1450 mLs of blood loss during the procedure and was transfused one unit of PRBCs. Following surgery, anesthesia recommended transfer to ICU for hemodynamic monitoring; he was hypotensive during surgery, requiring vasopressin. Per RN report, the patient didn't meet criteria for ICU admission and telemetry was never started. It looks like the telehealth ICU provider did assess the patient, but the hospitalist service was never consulted. Exam Vital Signs (past 8 hours): - 05/01/23 02:08 05/01/23 02:08 05/01/23 03:00 Temperature Pulse Rate 67 70 Respiratory Rate 15 18 Blood Pressure 136/65 116/59 L Pulse Oximetry 97 98 96 Oxygen Delivery Method Room Air Oxygen Flow Rate 05/01/23 03:30 05/01/23 04:00 05/01/23 04:28 Temperature 97.2 F L Pulse Rate 65 Respiratory Rate 16 Blood Pressure 116/60 Pulse Oximetry 97 97 Oxygen Delivery Method Room Air Room Air Oxygen Flow Rate 05/01/23 05:00 05/01/23 06:00 05/01/23 07:00 Temperature Pulse Rate 71 61 Respiratory Rate 14 19 Blood Pressure 112/58 L 96/51 L Pulse Oximetry 92 95 97 Oxygen Delivery Method Room Air Oxygen Flow Rate 05/01/23 08:00 Temperature 97.4 F L Pulse Rate 67 Respiratory Rate 20 Blood Pressure 107/55 L Pulse Oximetry 98 Oxygen Delivery Method Oxygen Flow Rate 0 Oxygen Delivery Method Room Air Oxygen Flow Rate 0 Narrative Exam Narrative: 3/5 strength in hip flexors, quadriceps, hamstrings; 5/5 DF, PF, EHL on left. Sensation to light touch intact throughout LLE. Calf soft and compressible. BART functioning, CDI. Objective Labs 05/01/23 06:50 05/01/23 06:50 Labs: Laboratory Results - last 24 hr 04/30/23 04/30/23 05/01/23 16:40 18:46 06:50 WBC 7.1 10.9 D RBC 3.56 L 3.18 L Hgb 10.5 L 9.3 L Hct 30.9 L 27.4 L MCV 86.6 86.0 MCH 29.4 29.1 MCHC 33.9 33.9 RDW 15.2 H 15.2 H Plt Count 131 L 118 L Neut % (Auto) 88.9 H Lymph % (Auto) 2.1 L [place] % (Auto) 9.0 Eos % (Auto) 0.0 L Baso % (Auto) 0.0 Neut # (Auto) 9700 H Lymph # (Auto) 200 L [place] # (Auto) 1000 H Eos # (Auto) 0 Baso # (Auto) 0 Sodium 137 Potassium 4.5 Chloride 107 Carbon Dioxide 25 BUN 20 Creatinine 0.76 Estimated GFR > 60 BUN/Creatinine Ratio 26.3 H Glucose 134 H Calcium 8.2 L Phosphorus 4.1 H Magnesium 1.9 Total Bilirubin 0.6 AST 86 H ALT 27 Alkaline Phosphatase 41 Total Protein 5.0 L Albumin 2.9 L Globulin 2.1 Albumin/Globulin Ratio 1.4 Blood Type A Positive Antibody Screen Negative Crossmatch See Detail [facility] Medical History Memory loss Right wrist fracture (01/13/23) HLD (hyperlipidemia) HTN (hypertension) Surgical History Hx of arthroscopy of left knee (07/18/12) S/P TURP (status post transurethral resection of prostate) Hx of arthroscopy of left knee (09/26/04) Hx of hernia repair (02/2010) Hx of colonoscopy (10/17/08) Hx of appendectomy (1956) S/P cervical spinal fusion (09/1983) History of carpal tunnel surgery of right wrist (11/2022) Hx of bilateral cataract extraction 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) History of total left knee replacement (08/18/05) History of total left hip replacement (05/13/10) Social History household members: none Smoking Status: Former smoker alcohol intake: former Assessment & Plan Post-op Assessment and plan (1) S/P total hip arthroplasty: Assessment and Plan narrative: Work w/ PT today; WBAT to LLE w/ anterior hip precautions. Family would like HHPT for pt; will alert CM. Dr Kirkland discussed discharge tomorrow, but this is pending progress w/ PT. Also, pt has h/o urinary retention and is on tamsulosin regularly; will order removal of Carmichael today but pt should be voiding independently prior to discharge. (2) Hypotension after procedure: Assessment and Plan narrative: Will hold amlodipine for SBP < 120. Received a call from RN later in the morning concerned re pts dizziness w/ standing and decreased UO. Bolus of 500mL LR ordered, IVF @ 100mL/hr continuing. At this point, hospitalist consult is likely not needed, but will continue to monitor and will consult if needed. Pt can continue w/ regular acute care vital sign monitoring and other routine post-op care. He is currently in an ICU bed but can be moved if needed. (3) Acute postoperative anemia due to expected blood loss: Assessment and Plan narrative: H/H appropriate this morning. I will order recheck for tomorrow morning, but do not anticipate significant decrease. Postoperative Procedures: Procedures Operation Date: 04/30/23 13:45 Actual Procedure Side Surgeon p Total Hip Arthroplasty Revision Left Dean Kirkland MD Postoperative day: 1 Quality VTE Deep Vein Thrombosis/Pulmonary Embolism Present on Admission: Yes
--- NOTE | 2023-05-01 10:19 | PC.NURSE ---
Addendum entered by Nancy Ayon R.N. 05/01/23 18:05: Called provider and gave an update about pt ambulation, BP >65, pt tolerating po and urinary output. Provider said okay to keep IV fluids off as long as BP stable and MAP >65. Addendum entered by Nancy Ayon R.N. 05/01/23 17:45: Bladder scanned pt around 1700, >400 returned, pt encouraged to void and pt able to void 325. Addendum entered by Nancy Ayon R.N. 05/01/23 12:59: In am during rounds at bedside prior to med pass, RN informed provider that current pt orders were not for ICU. orders were 'outpatient with a bed' not ICU. Also informed provider that pt did not meet ICU status (VSS, not on vasopressors) and told provider that there was not an active order for hospitalist consultation. RN did this for clarification to ensure care team was aware of current orders and patient care. Asked provider if it was okay to remove Felton once pt stood and ambulated, providers confirmed this was okay. Provider told RN to hold amlodipine if SBP was <100. Addendum entered by Nancy Ayon R.N. 05/01/23 10:28: Emptied felton catheter and informed PA that pt output has been 125ml total since 0600. Provider said to continue IV fluids. Original Note: Measured pt's blood pressure before administering morning amlodipine. Pt was hypotensive (MAP 60) and pt felt dizzy. Due to BP and symptoms, RN held amlodipine and oxycodone and contacted provider. RN also reported to provider that pt was oliguric. Provider ordered bolus.RN monitored BP - after bolus MAP >65.
--- NOTE | 2023-05-01 11:10 | PT.IIE ---
Current Diagnoses Acute posthemorrhagic anemia (04/30/23) Postprocedural hypotension (04/30/23) Broken internal joint prosthesis, unspecified site, subsequent encounter (04/30/23) Presence of unspecified artificial hip joint (04/30/23) Surgery Performed Operation Date: 04/30/23 13:45 Actual Procedures p Total Hip Arthroplasty Revision(Left) - Dean Kirkland MD Surgical History (Last Reviewed 04/30/23 @ 22:22 by Antonio Meade MD) History of carpal tunnel surgery of right wrist (11/2022) 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) 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) Hx of appendectomy (1956) Hx of arthroscopy of left knee (09/26/04) Hx of arthroscopy of left knee (07/18/12) Hx of bilateral cataract extraction Hx of colonoscopy (10/17/08) Hx of hernia repair (02/2010) S/P cervical spinal fusion (09/1983) S/P TURP (status post transurethral resection of prostate) Medical History (Last Reviewed 04/30/23 @ 22:22 by Antonio Meade MD) HLD (hyperlipidemia) HTN (hypertension) Memory loss Right wrist fracture (01/13/23) Physical Therapy Inpatient Evaluation/Re-Eval M1 PT/OT-IP Prior Functional Status Start: 05/01/23 15:06 Freq: NEEDED Status: Active Protocol: Document 05/01/23 11:10 AB (Rec: 05/01/23 15:15 AB [id number]) Medical Review Prior Functional Status Medical History Reviewed Yes Communication able to make needs known; pt is is [place] Mobility and Gait son is in room and provided PLOF and home set up: stated that pt was modified independent with all mobilities using a 3WW but limited due to hip pain and knee pain Social History Household Members none Living Arrangements Apartment/Condo Number of Floors (Floors) One Floor Number of Stairs To Enter/Railing? elevator to access Home Environment Standard Height Toilet, Elevator Home Equipment Front Wheel Walker,Manual Wheelchair,Shower Seat with Backrest,Hand Held Shower,Grab Bars Near Toilet,Grab Bars In Shower Additional Social History Comment pt's son plans to stay with pt to assist as long as needed pt also has a transport chair M2 PT-IP Current Condition Start: 05/01/23 15:06 Freq: NEEDED Status: Active Protocol: Document 05/01/23 11:10 AB (Rec: 05/01/23 15:15 AB [id number]) Physical Therapy Current Condition Current Condition Evaluation Date 05/01/23 Treatment Diagnosis s/p L ANDREW revision anterior; difficulty in walking Onset Date 04/30/23 M3 PT-IP Subjective Start: 05/01/23 15:06 Freq: NEEDED Status: Active Protocol: Document 05/01/23 11:10 AB (Rec: 05/01/23 15:15 AB [id number]) Subjective Physical Therapy Visit Type Type Initial Evaluation Visit Start Time 11:10 Visit Stop Time 11:35 Number of PRODUCT SAFETY ADMINISTRATOR Visits 0 Physical Therapy Visit Comments Patient Comments requesting to use the toilet M4 PT-IP Mobility and Gait Start: 05/01/23 15:06 Freq: NEEDED Status: Active Protocol: Document 05/01/23 11:10 AB (Rec: 05/01/23 15:15 AB [id number]) PT-Transfer Assessment Sit to and From Stand Sit to and from Stand Maximum Assistance,1 Person Assistance,2 Person Assistance ,Use of Upper Extremities Equipment Transfer Assistive Device Front Wheeled Walker Orthotic/Prosthetic Devices or Brace: No Transfers Transfer Destination Bedside Commode Transfer Technique Stand Step Pivot Transfer Ability Level of Assist Maximum Assistance,1 Person Assistance,2 Person Assistance ,Use of Upper Extremities Comments Mobility Comments pt sitting on EOB with nurse and requesting to use the toilet. completed sit to stand max A x 1-2 and max cues . completed step pivot transfer using fWW max A and max cues. pt required max A for controlled descent to the commode. son in room and provided pt's PLOF and home set up. post-op folder provided to pt. pt wanting to use the commode for a while. call light within reach. nurse is aware. PT-Balance Assessment Sitting Balance and Reactions Static Sitting Balance Ability Good Dynamic Sitting Balance Ability Fair Standing Balance and Reactions Static Standing Balance Ability Poor Dynamic Standing Balance Ability Poor Device Used FWW M5 PT-IP Objective Assessments Start: 05/01/23 15:06 Freq: NEEDED Status: Active Protocol: Document 05/01/23 11:10 AB (Rec: 05/01/23 15:15 AB [id number]) Orientation Orientation/Cognition Level of Alertness Alert Orientation Name,Place,Situation Language Function Ability Hard of Hearing Safety Awareness Decreased Safety Awareness Memory Description Short Term Impaired Muscle Tone Muscle Tone WNL Yes M6 PT-IP Treatment Start: 05/01/23 15:06 Freq: NEEDED Status: Active Protocol: Document 05/01/23 11:10 AB (Rec: 05/01/23 15:15 AB [id number]) Physical Therapy Treatment Education Education Provided Post-Op Packet,Safety M7 PT-IP Assessment and Plan Start: 05/01/23 15:06 Freq: NEEDED Status: Active Protocol: Document 05/01/23 11:10 AB (Rec: 05/01/23 15:15 AB [id number]) PT Summary Assessment and Plan Potential Rehabilitation Potential Fair Status of Condition at Evaluation Evolving Summary Impairments Pain,ROM,Strength,Balance, Coordination,Sensation,Tone, Cognition,Bed Mobility, Transfers,Gait,Activity Tolerance Assessment Summary pt is an 87 y/o M s/p L ANDREW revision anterior approach. pt has L hip anterior precautions and is WBAT. pt has h/o B TKA x3 and son stated that pt has difficulties with using his knees since knee surgery. pt requiring max A x 1-2 with transfers using FWW. will need further assess ment for safe d/c plan and when appropriate, will conduct caregiver training. Goals Bed Mobility Goal Standby Assistance Transfer Goal Standby Assistance,Front Wheeled Walker Gait Goal Standby Assistance,Front Wheel Walker Gait Distance 200 Other Goals improve transfers and ambulation using 3WW mod I ~ 300 ft Days to Meet Goals 5 Frequency of Treatment Frequency Of Treatment Twice a Day Treatment Plan Physical Therapy Treatment Plan Bed Mobility Training,Transfer Training,Gait Training, Therapeutic Exercise,Balance Retraining,Post Op Education, Discharge Planning,Hot or Cold Pack,Neuromuscular Re-ed, Coordination Retraining,Manual Therapy Precautions Anterior Hip Precautions No Hip Extension,No Hip External Rotation Weight Bearing Status Weight Bearing Status Weight Bear as Tolerated Allowed Weight Bearing Amount (enter % LLE WBAT or #) (%) Recommendations To Nursing Amount of Assist Needed 2 Person Assist Discharge Recommendations PT Discharge Recommendations Home with 19/10 Assist Available,Home Health Transportation Needs at Discharge Private Vehicle,Wheelchair/ Cabulance
--- NOTE | 2023-05-01 14:10 | CM.DANOTE ---
Initial DCP Assessment Note Pt is a 87 yo male, resident of [place], now POD#1 from elective revision of his hip by Dr Kirkland. Post operative course complicated by 1450mls of blood loss during this procedure and hypotension. PCP: Rock Montenegro Payer: [facility]/ out of [facility] Reviewed chart, met w/patient, his son Jim and his girlfriend- both visiting from [place] to help care for patient throughout his recovery. Patient lives alone in a condo in [place], still drives,. Patient is mostly active and indp, mild memory loss, uses a cane or walker as needed. Patient fell in December and since that time has been more unsteady on his feet per family's report. Family visiting from [place] and daughter Roz that lives in [place] plan to assist patient at home throughout his recovery. Patient/family do not want patient in a SNF. Discussed HH services, patient/family agreeable and state no agency preference. Sent Email to Sherita at [facility] based on soonest availability; sent face sheet, completed and signed F2F and HH order. Plan: Anticipate Discharge home w/supportive family, [facility] via family to transport. It is still early in patient's post operative course, therapy evals will be helpful for dispo recs. 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 No History Provided By Patient,Family Member Prior Living Arrangements Apartment/Condo Household Members none Type of transporation used prior to Drives own vehicle admit Independent with ADL's Yes Is patient alert and oriented? Yes: Mild dementia Patient/Family Preference Home with Home Health Barriers to Discharge Yes Comment Still early in recovery, post operative course complicated by blood loss and hypotension, therapies pending Discharge Plan Home with Home Health Transportation Arrangement Family Referrals Initiated Home Health Additional Comment [facility] SNF/HH Preference No HH preference Whiteboard Updated in Patient Room with Yes name and ext. # of Cabin Supervisor
--- NOTE | 2023-05-01 15:15 | PT.IPTN ---
Current Diagnoses Acute posthemorrhagic anemia (04/30/23) Postprocedural hypotension (04/30/23) Broken internal joint prosthesis, unspecified site, subsequent encounter (04/30/23) Presence of unspecified artificial hip joint (04/30/23) Surgery Performed Operation Date: 04/30/23 13:45 Actual Procedures p Total Hip Arthroplasty Revision(Left) - Dean Kirkland MD Physical Therapy Treatment Note M2 PT-IP Current Condition Start: 05/01/23 15:06 Freq: NEEDED Status: Active Protocol: Document 05/01/23 11:10 AB (Rec: 05/01/23 15:15 AB [id number]) Physical Therapy Current Condition Current Condition Evaluation Date 05/01/23 Treatment Diagnosis s/p L ANDREW revision anterior; difficulty in walking Onset Date 04/30/23 M3 PT-IP Subjective Start: 05/01/23 15:06 Freq: NEEDED Status: Active Protocol: Document 05/01/23 15:15 AB (Rec: 05/01/23 17:26 AB [id number]) Subjective Physical Therapy Visit Type Type Treatment Note Visit Start Time 15:15 Visit Stop Time 17:00 Number of LOFT WORKER HEAD Visits 0 Physical Therapy Visit Comments Patient Comments agreeable to do PT Therapy Pain Assessment Pain When Pain Assessed At Rest Pain Present Pain Present Pain Reported Location Left Lower Hip Intensity 1 M4 PT-IP Mobility and Gait Start: 05/01/23 15:06 Freq: NEEDED Status: Active Protocol: Document 05/01/23 15:15 AB (Rec: 05/01/23 17:26 AB [id number]) PT-Bed Mobility Assessment Supine to Sit Supine to Sit Maximum Assistance Sit to Supine Sit to Supine Maximum Assistance PT-Transfer Assessment Sit to and From Stand Sit to and from Stand Maximum Assistance,1 Person Assistance,2 Person Assistance ,Use of Upper Extremities Equipment Transfer Assistive Device Gait Belt,Front Wheeled Walker Orthotic/Prosthetic Devices or Brace: No Transfers Transfer Destination Bed,Chair Transfer Technique Stand Step Pivot Transfer Ability Level of Assist Maximum Assistance,1 Person Assistance,Use of Upper Extremities Comments Mobility Comments pt sitting on the chair. daughter in room. pt agreed to do PT. BP in sittin/58 . educated pt and daughter regarding pt's L anterior hip precautions. pt with memory issues and needs cues to recall despite repetitions and explanations for precautions. pt completed sit to stand from the chair x 2 attempts max A x 1-2 and max cues. pt with decrease trunk control and decrease motor planning. unable to keep trunk forward during push off from the chair with increase retrolean and pt also tends not to use LE strength to push and relies heavy on UE to push from arm rests. educated pt regarding sit<>stand techniques but pt with decrease motor planning and will tend to push trunk backwards when instructed to shift body weight forward. pt also tends not to push down on FWW for support during initial standing. max A for standing balance and max A x 1 -2 for repositioning pt to upright centered position. NAC came in to asssit. completed sit to stand again max A x 1-2 and max cues and pt ambulated in room ~ 20 ft max A x 1-2 and max cues. needs cues for hip precautions and pt with stooped posture. pt sat on EOB. educated on bed mobility. pt completed sit <>supine max A and max cues. Caregiver training initiated. daughter stated that she has been assisting pt for the passed 2 months. daughter was able to put safety belt on. educated on how to assist pt with use of safety belt. daughter assist pt with sit <> stand and PT on other side to assist pt. pt requiring max A x 1-2 and max cues. pt completed step transfer to chair using FWW max A x1-2 and max cues. pt wants to stay on the chair. educated pt and daughter on pt doing trunk forward exercises to improve trunk control. set up caregiver training at 11am tomorrow. daughter and son will be present. daughter stated that both of them can stay with pt and assist but only his son will be able to stay at home with him at night . Gait Assessment Gait Gait Assistance Required: Maximum Assistance Distance (Feet) 20 Able to Maintain Weight Bearing Status Yes During Gait Assistive Devices Assistive Device Gait Belt,Front Wheeled Walker Orthotic/Prosthetic Devices or Brace: No Gait Deviations General Gait Pattern Antalgic,Ataxic,Decreased Stride Length,Decreased Feet Clearance Factors Limiting Gait Function Factors Limiting Gait Function Decreased Activity Tolerance, Decreased Strength,Difficulty Following Directions,Limited Range of Motion,Pain,Poor Balance,Poor Safety Awareness M5 PT-IP Objective Assessments Start: 05/01/23 15:06 Freq: NEEDED Status: Active Protocol: Document 05/01/23 11:10 AB (Rec: 05/01/23 15:15 AB [id number]) Orientation Orientation/Cognition Level of Alertness Alert Orientation Name,Place,Situation Language Function Ability Hard of Hearing Safety Awareness Decreased Safety Awareness Memory Description Short Term Impaired Muscle Tone Muscle Tone WNL Yes M6 PT-IP Treatment Start: 05/01/23 15:06 Freq: NEEDED Status: Active Protocol: Document 05/01/23 15:15 AB (Rec: 05/01/23 17:26 AB [id number]) Physical Therapy Treatment Education Education Provided Precautions,Weight Bearing Status,Post-Op Packet,Safety M7 PT-IP Assessment and Plan Start: 05/01/23 15:06 Freq: NEEDED Status: Active Protocol: Document 05/01/23 15:15 AB (Rec: 05/01/23 17:26 AB [id number]) PT Summary Assessment and Plan Potential Rehabilitation Potential Fair Summary Impairments Pain,ROM,Strength,Balance, Coordination,Sensation,Tone, Cognition,Bed Mobility, Transfers,Gait,Activity Tolerance Progress Towards Goals Slow Progress - Other Assessment Summary pt requiring max A x 1-2 and max cues with all tasks for safety and precautions. caregiver training initiated but further training is needed . caregiver training set up for tomorrow at 11am. pt will require 24/7 assist at this time and will require HHPT. will continue to assess progress. Goals Bed Mobility Goal Standby Assistance Transfer Goal Standby Assistance,Front Wheeled Walker Gait Goal Standby Assistance,Front Wheel Walker Gait Distance 200 Other Goals improve transfers and ambulation using 3WW mod I ~ 300 ft Days to Meet Goals 5 Frequency of Treatment Frequency Of Treatment Twice a Day Treatment Plan Physical Therapy Treatment Plan Bed Mobility Training,Transfer Training,Gait Training, Therapeutic Exercise,Balance Retraining,Post Op Education, Discharge Planning,Hot or Cold Pack,Neuromuscular Re-ed, Coordination Retraining,Manual Therapy Precautions Anterior Hip Precautions No Hip Extension,No Hip External Rotation Weight Bearing Status Weight Bearing Status Weight Bear as Tolerated Allowed Weight Bearing Amount (enter % LLE WBAT or #) (%) Recommendations To Nursing Amount of Assist Needed 2 Person Assist Discharge Recommendations PT Discharge Recommendations Home with 24/7 Assist Available,Home Health Transportation Needs at Discharge Private Vehicle,Wheelchair/ Cabulance
[2023-05-02] VITALS (11 sets, daily range): BP systolic 93–114; BP diastolic 51–60; PULSE 56–80; RESP 20; TEMP 36.2–37.2; O2SAT 93–98
[2023-05-02] MEDS: HYDROCODONE/ACET 5/325 TABLET 1 TAB PO ×2 (01:43→10:43)
[2023-05-02 04:54] LABS: Hematocrit 23.9 % (41-53); Hemoglobin 8.4 g/dL (13.5-17.5)
--- NOTE | 2023-05-02 05:40 | PC.NURSE ---
Patient AOx4 throughout the night, intermittently forgetful. Baseline [place], B hearing aids at bedside, visual aids at bedside. Patient Slept well throughout the night. Ambulates well to restroom with walker,gait belt and assist x2, slow-shuffling gait noted. VSS, slightly hypotensive SBP in the 90s, MAP remained WNL, Afebrile, tolerating RA. Lungs clear throughout. Tolerating heart healthy diet. Voids per urinal, frequency noted, small hard BM noted this shift. PIV x2 intact, saline locked. BART dressing intact to L hip incision. +2 pitting edema to LLE near hip. Nonvascular checks WNL throughout the night. Patient reports tolerable pain with ordered and PRN medication. Ice applied to L hip per patients request. Plan of care continued.
[2023-05-02] MEDS: TAMSULOSIN 0.4 MG CAPSULE 0.8 MG PO ×2 (08:44→20:21)
[2023-05-02] MEDS: DOCUSATE 100 MG CAPSULE PO ×2 (08:44→20:20)
[2023-05-02] MEDS: ACETAMINOPHEN 325 MG TABLET 650 MG PO ×2 (08:44→20:21)
[2023-05-02] MEDS: DONEPEZIL 5 MG TABLET PO (08:45)
[2023-05-02] MEDS: SERTRALINE 50 MG TABLET 25 MG PO (08:45)
[2023-05-02] MEDS: MELOXICAM 7.5 MG TABLET 15 MG PO (08:45)
[2023-05-02] MEDS: ASPIRIN EC 81 MG TABLET PO ×2 (08:45→20:20)
[2023-05-02] MEDS: MEMANTINE HCL 5 MG TABLET PO ×2 (08:45→20:20)
[2023-05-02] MEDS: LORATADINE 10 MG TABLET PO (08:45)
--- NOTE | 2023-05-02 11:56 | PT.IPTN ---
Current Diagnoses Acute posthemorrhagic anemia (04/30/23) Postprocedural hypotension (04/30/23) Broken internal joint prosthesis, unspecified site, subsequent encounter (04/30/23) Presence of unspecified artificial hip joint (04/30/23) Surgery Performed Operation Date: 04/30/23 13:45 Actual Procedures p Total Hip Arthroplasty Revision(Left) - Dean Kirkland MD Physical Therapy Treatment Note M2 PT-IP Current Condition Start: 05/01/23 15:06 Freq: NEEDED Status: Active Protocol: Document 05/01/23 11:10 AB (Rec: 05/01/23 15:15 AB [id number]) Physical Therapy Current Condition Current Condition Evaluation Date 05/01/23 Treatment Diagnosis s/p L ANDREW revision anterior; difficulty in walking Onset Date 04/30/23 M3 PT-IP Subjective Start: 05/01/23 15:06 Freq: NEEDED Status: Active Protocol: Document 05/02/23 11:17 KS (Rec: 05/02/23 12:38 KS [id number]) Subjective Physical Therapy Visit Type Type Treatment Note Visit Start Time 11:17 Visit Stop Time 11:56 Notes Son and daughter present for initiation of caregiver training. Number of STRAIGHTEDGE MACHINE OPERATOR HELPER Visits 39 Physical Therapy Visit Comments Patient Comments agreeable to do PT, slightly lightheaded w. soft but stable BP. Therapy Pain Assessment Pain When Pain Assessed During Mobility Pain Present Pain Present Pain Reported Location Left Lower Hip Intensity 2 Scale Used Numeric (0 - 10) Pain Management Techniques Timing of Activity with Medications M4 PT-IP Mobility and Gait Start: 05/01/23 15:06 Freq: NEEDED Status: Active Protocol: Document 05/02/23 11:17 KS (Rec: 05/02/23 12:38 KS [id number]) PT-Transfer Assessment Sit to and From Stand Sit to and from Stand Moderate Assistance,1 Person Assistance,Use of Upper Extremities Equipment Transfer Assistive Device Gait Belt,Front Wheeled Walker Orthotic/Prosthetic Devices or Brace: No Transfers Transfer Destination Chair Transfer Technique pt ambulated w/ FWW Transfer Ability Level of Assist Moderate Assistance,1 Person Assistance,Use of Upper Extremities Comments Mobility Comments Pt in chair upon arrival, reports feeling better today. Demonstrated gait belt application and sit<.stand technique to pts son who was able to perform. Pt required cues for sequencing, Mod A for sit>stand w/ FWW. Upon standing, pt reported slight lightheaddness but BP was stable although soft. Pt denied worsening of lightheadedness. Performed [address], followed by 30 ft amabulation w/ FWW CGA. Pt returned to chair, needs cues for slow descent and reaching back to arm rests. Was able to recall ant hip precautions. Reviewed sit<>stand body mechanics and post op exercises. Left pt in room w/ children and all needs in reach. Gait Assessment Gait Gait Assistance Required: Contact Guard Assist,Minimum Assistance,1 Person Assist Distance (Feet) 30 Able to Maintain Weight Bearing Status Yes During Gait Assistive Devices Assistive Device Gait Belt,Front Wheeled Walker Orthotic/Prosthetic Devices or Brace: No Gait Deviations General Gait Pattern Antalgic,Ataxic,Decreased Stride Length,Decreased Feet Clearance Factors Limiting Gait Function Factors Limiting Gait Function Decreased Activity Tolerance, Decreased Strength,Difficulty Following Directions,Limited Range of Motion,Pain,Poor Balance,Poor Safety Awareness Comments Gait Comments See mobility section for details. Stair Climbing Assessment Comments Stair Climbing Comments Did not assess. PT-Balance Assessment Sitting Balance and Reactions Static Sitting Balance Ability Good Dynamic Sitting Balance Ability Good Standing Balance and Reactions Static Standing Balance Ability Fair Dynamic Standing Balance Ability Fair Device Used FWW M5 PT-IP Objective Assessments Start: 05/01/23 15:06 Freq: NEEDED Status: Active Protocol: Document 05/01/23 11:10 AB (Rec: 05/01/23 15:15 AB [id number]) Orientation Orientation/Cognition Level of Alertness Alert Orientation Name,Place,Situation Language Function Ability Hard of Hearing Safety Awareness Decreased Safety Awareness Memory Description Short Term Impaired Muscle Tone Muscle Tone WNL Yes M6 PT-IP Treatment Start: 05/01/23 15:06 Freq: NEEDED Status: Active Protocol: Document 05/02/23 11:17 KS (Rec: 05/02/23 12:38 KS [id number]) Physical Therapy Treatment Exercises Exercises Gluteal Sets Education Education Provided Precautions,Weight Bearing Status,Post-Op Packet,Safety Other Treatments Other Treatment Performed Intiated caregiver training M7 PT-IP Assessment and Plan Start: 05/01/23 15:06 Freq: NEEDED Status: Active Protocol: Document 05/02/23 11:17 KS (Rec: 05/02/23 12:38 KS [id number]) PT Summary Assessment and Plan Potential Rehabilitation Potential Fair Summary Impairments Pain,ROM,Strength,Balance, Coordination,Sensation,Tone, Cognition,Bed Mobility, Transfers,Gait,Activity Tolerance Progress Towards Goals Slow Progress - Other Assessment Summary Pt made progress today and is feeling better overall. Able to recall precautions, required Mod A for sit<>stand and CGA to occasional Min for 30 ft ambulation. His son was able to apply gait belt and provide assistance w/ transfers and ambulation. Will need to continue caregiver training for bed mobility and greater ambulation distance. He will need 24/7 assistance and HHPT. Goals Bed Mobility Goal Standby Assistance Transfer Goal Standby Assistance,Front Wheeled Walker Gait Goal Standby Assistance,Front Wheel Walker Gait Distance 200 Other Goals improve transfers and ambulation using 3WW mod I ~ 300 ft Days to Meet Goals 5 Frequency of Treatment Frequency Of Treatment Twice a Day Treatment Plan Physical Therapy Treatment Plan Bed Mobility Training,Transfer Training,Gait Training, Therapeutic Exercise,Balance Retraining,Post Op Education, Discharge Planning,Hot or Cold Pack,Neuromuscular Re-ed, Coordination Retraining,Manual Therapy Precautions Anterior Hip Precautions No Hip Extension,No Hip External Rotation Weight Bearing Status Weight Bearing Status Weight Bear as Tolerated Allowed Weight Bearing Amount (enter % LLE WBAT or #) (%) Recommendations To Nursing Amount of Assist Needed 2 Person Assist Discharge Recommendations PT Discharge Recommendations Home with 24/7 Assist Available,Home Health Transportation Needs at Discharge Private Vehicle,Wheelchair/ Cabulance
--- NOTE | 2023-05-02 12:01 | PM.PNPO.1 ---
Subjective Subjective Interval history: He notes he feels much better than he did preoperatively. He is sitting up in a chair. Family is at bedside. He is waiting for therapy. He has minimal left hip pain. He does not feel lightheaded or short of breath. Exam Vital Signs (past 8 hours): - 05/02/23 07:11 05/02/23 08:30 05/02/23 09:00 Temperature 97.3 F L Pulse Rate 77 Respiratory Rate 20 Blood Pressure 102/52 L 97/53 L Pulse Oximetry 98 95 Oxygen Delivery Method Room Air Oxygen Flow Rate 0 0 05/02/23 11:31 Temperature 97.1 F L Pulse Rate 56 L Respiratory Rate 20 Blood Pressure 94/51 L Pulse Oximetry 98 Oxygen Delivery Method Oxygen Flow Rate 0 Oxygen Delivery Method Room Air Oxygen Flow Rate 0 Narrative Exam Narrative: Calf soft bilaterally dressings intact and benign he is minimal pain with gentle range of motion in his hip, he can fire his toe flexors and extensors quads and hamstrings bilaterally Objective Labs 05/02/23 04:30 05/01/23 06:50 Labs: Laboratory Results - last 24 hr 05/02/23 04:30 Hgb 8.4 L Hct 23.9 L PFSH Medical History Memory loss Right wrist fracture (01/13/23) HLD (hyperlipidemia) HTN (hypertension) Surgical History Hx of arthroscopy of left knee (07/18/12) S/P TURP (status post transurethral resection of prostate) Hx of arthroscopy of left knee (09/26/04) Hx of hernia repair (02/2010) Hx of colonoscopy (10/17/08) Hx of appendectomy (1956) S/P cervical spinal fusion (09/1983) History of carpal tunnel surgery of right wrist (11/2022) Hx of bilateral cataract extraction 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 He does have postoperative anemia. His blood pressure is a little low but he is not markedly symptomatic. I told him we can attempt to have him mobilize with physical therapy. He may require 1 unit of packed RBCs for a transudate fusion if he continues to have ongoing symptoms associated with this postoperative acute blood loss anemia. Postoperative plan: ambulate Postoperative plan narrative: He will mobilize with physical therapy. I anticipate that he likely can be discharged to home probably tomorrow. We may do a transfusion if he continues to be symptomatic with his postop anemia. We will get a repeat CBC in the a.m.. Quality VTE Deep Vein Thrombosis/Pulmonary Embolism Present on Admission: Yes
--- NOTE | 2023-05-02 13:28 | PT.IPTN ---
Current Diagnoses Acute posthemorrhagic anemia (04/30/23) Postprocedural hypotension (04/30/23) Broken internal joint prosthesis, unspecified site, subsequent encounter (04/30/23) Presence of unspecified artificial hip joint (04/30/23) Surgery Performed Operation Date: 04/30/23 13:45 Actual Procedures p Total Hip Arthroplasty Revision(Left) - Dean Kirkland MD Physical Therapy Treatment Note M2 PT-IP Current Condition Start: 05/01/23 15:06 Freq: NEEDED Status: Active Protocol: Document 05/01/23 11:10 AB (Rec: 05/01/23 15:15 AB [id number]) Physical Therapy Current Condition Current Condition Evaluation Date 05/01/23 Treatment Diagnosis s/p L ANDREW revision anterior; difficulty in walking Onset Date 04/30/23 M3 PT-IP Subjective Start: 05/01/23 15:06 Freq: NEEDED Status: Active Protocol: Document 05/02/23 12:48 KS (Rec: 05/02/23 13:40 KS [id number]) Subjective Physical Therapy Visit Type Type Treatment Note Visit Start Time 12:48 Visit Stop Time 13:28 Notes Son and daughter present for initiation of caregiver training. Number of LAP POLISHER Visits 40 Physical Therapy Visit Comments Patient Comments agreeable to do PT, slightly lightheaded w. soft but stable BP. M4 PT-IP Mobility and Gait Start: 05/01/23 15:06 Freq: NEEDED Status: Active Protocol: Document 05/02/23 12:48 KS (Rec: 05/02/23 13:40 KS [id number]) PT-Transfer Assessment Sit to and From Stand Sit to and from Stand Moderate Assistance,1 Person Assistance,Use of Upper Extremities Equipment Transfer Assistive Device Gait Belt,Front Wheeled Walker Orthotic/Prosthetic Devices or Brace: No Transfers Transfer Destination Bed,Chair Transfer Technique pt ambulated w/ FWW Transfer Ability Level of Assist Moderate Assistance,1 Person Assistance,Use of Upper Extremities Comments Mobility Comments Pt in chair upon arrival, pts son able to apply gaitbelt to pt but needs reminders of appropriate cues to give pt when standing. Pt completed 5x sit<>stands w/ FWW and Mod A provided from son. Pt requires cues for hand placement, scooting forward, bending knees, leaning trunk forward, avoiding posterior lean when standing. Pts son was able to provide all cues and assistance by 5th attempt, but additional training to assess carryover would be beneficial . Pt then ambulated ~20 ft w/ FWW CGA and transferred back to bed w/ Min A. Pt left in bed w all needs in reach. Discussed home health PT, OT, and nursing w/ patient, family , and clinical social work therapist. Gait Assessment Gait Gait Assistance Required: Contact Guard Assist Distance (Feet) 20 Able to Maintain Weight Bearing Status Yes During Gait Assistive Devices Assistive Device Gait Belt,Front Wheeled Walker Orthotic/Prosthetic Devices or Brace: No Gait Deviations General Gait Pattern Antalgic,Ataxic,Decreased Stride Length,Decreased Feet Clearance Factors Limiting Gait Function Factors Limiting Gait Function Decreased Activity Tolerance, Decreased Strength,Difficulty Following Directions,Limited Range of Motion,Pain,Poor Balance,Poor Safety Awareness Comments Gait Comments Cues when turning to avoid external roation, cues for step to gait to avoid hyperextension. Pt responds well. Stair Climbing Assessment Comments Stair Climbing Comments No stairs at home. PT-Balance Assessment Sitting Balance and Reactions Static Sitting Balance Ability Good Dynamic Sitting Balance Ability Good Standing Balance and Reactions Static Standing Balance Ability Fair Dynamic Standing Balance Ability Fair Device Used FWW M5 PT-IP Objective Assessments Start: 05/01/23 15:06 Freq: NEEDED Status: Active Protocol: Document 05/01/23 11:10 AB (Rec: 05/01/23 15:15 AB [id number]) Orientation Orientation/Cognition Level of Alertness Alert Orientation Name,Place,Situation Language Function Ability Hard of Hearing Safety Awareness Decreased Safety Awareness Memory Description Short Term Impaired Muscle Tone Muscle Tone WNL Yes M6 PT-IP Treatment Start: 05/01/23 15:06 Freq: NEEDED Status: Active Protocol: Document 05/02/23 12:48 KS (Rec: 05/02/23 13:40 KS [id number]) Physical Therapy Treatment Education Education Provided Precautions,Weight Bearing Status,Post-Op Packet,Safety Other Treatments Other Treatment Performed Continued caregiver training, sit<>stands. M7 PT-IP Assessment and Plan Start: 05/01/23 15:06 Freq: NEEDED Status: Active Protocol: Document 05/02/23 12:48 KS (Rec: 05/02/23 13:40 KS [id number]) PT Summary Assessment and Plan Potential Rehabilitation Potential Fair Summary Impairments Pain,ROM,Strength,Balance, Coordination,Sensation,Tone, Cognition,Bed Mobility, Transfers,Gait,Activity Tolerance Progress Towards Goals Progressing Toward Goals,Slow Progress - Other Assessment Summary Pt continues to make slow progress but needs frequent cues for sequencing, especially with transfers and occasional cues to adhere to hip precautions. His son is able to perform caregiver tasks but needs some reminders of proper cues as well. Will benefit from continued caregiver training to assess carryover. Pt will require 24/ 7 assistance and will benefit from home health services. Goals Bed Mobility Goal Standby Assistance Transfer Goal Standby Assistance,Front Wheeled Walker Gait Goal Standby Assistance,Front Wheel Walker Gait Distance 200 Other Goals improve transfers and ambulation using 3WW mod I ~ 300 ft Days to Meet Goals 5 Frequency of Treatment Frequency Of Treatment Twice a Day Treatment Plan Physical Therapy Treatment Plan Bed Mobility Training,Transfer Training,Gait Training, Therapeutic Exercise,Balance Retraining,Post Op Education, Discharge Planning,Hot or Cold Pack,Neuromuscular Re-ed, Coordination Retraining,Manual Therapy Precautions Anterior Hip Precautions No Hip Extension,No Hip External Rotation Weight Bearing Status Weight Bearing Status Weight Bear as Tolerated Allowed Weight Bearing Amount (enter % LLE WBAT or #) (%) Recommendations To Nursing Amount of Assist Needed 1 Person Assist Discharge Recommendations PT Discharge Recommendations Home with 24/7 Assist Available,Home Health Transportation Needs at Discharge Private Vehicle,Wheelchair/ Cabulance
--- NOTE | 2023-05-02 13:41 | CM.DPC ---
DCP HH Cont: Per Ortho MD, pt's hemoglobin has dropped again today and waiting for further labs to determine if pt requires additional blood transfusion but if pt remains stable than anticipate likely d/c home tomorrow 05/03/23. Per ASBESTOS SURVEYOR, pt improved today and recommending home with family assist and HH. Previous SW had made referral to [facility] and completed F2F and orders. SW met bedside with pt, son and DIL and explained role and provided the [facility] brochure and explained HH services and frequency. Pt confirms his preference is to d/c home tomorrow if stable and would like [facility] and then will wait to see if he is ready for outpt PT by the time his scheduled outpt PT with [facility] on 05/22/23. Son confirms that he can stay with pt 19/10 if needed at d/c or provide assist as needed pending pt's progress. SW provided pt's IMM and discussed his Medicare Rights in anticipation of discharge likely tomorrow if stable. Pt and family acknowledge understanding and accepted the copy of his IMM for review. Plan: SW to follow for plan of discharge home tomorrow via family POV and [facility] if he remains medically stable. HOLLY Mane
[2023-05-02] MEDS: ATORVASTATIN 20 MG TABLET PO (20:21)
[2023-05-03] VITALS: BP 100/51; PULSE 86; RESP 12; TEMP 36.1; O2SAT 97
[2023-05-03] MEDS: SODIUM CHLORIDE 0.9% FLUSH 10 ML IV ×2 (00:12→08:32)
[2023-05-03] MEDS: ACETAMINOPHEN 325 MG TABLET 650 MG PO ×3 (02:37→13:44)
[2023-05-03 03:48] VITALS: BP 125/38; PULSE 73; RESP 14; TEMP 35.9; O2SAT 95
[2023-05-03 05:09] LABS: Add Manual Diff / Slide Review NO; Basophils Absolute Auto 0 /uL (0-100); Basophils Percent Auto 0.2 % (0-2); Eosinophils Absolute Auto 100 /uL (0-450); Eosinophils Percent Auto 1.1 % (2-4); Hematocrit 22.6 % (41-53); Hemoglobin 7.7 g/dL (13.5-17.5); Lymphocytes Absolute Auto 300 /uL (1100-4500); Mean Corpuscular HGB Conc 33.9 % (30-36); Mean Corpuscular Hemoglobin 28.9 PG (26-34); Mean Corpuscular Volume 85.3 fL (80-100); Monocytes Absolute Auto 600 /uL (0-900); Neutrophils Absolute Auto 4800 /uL (1500-7000); Neutrophils Percent Auto 83.7 % (50-75); Platelet Count 102 X10^3/uL (150-400); Red Blood Cell Count 2.65 X10^6/uL (4.5-5.9); Red Cell Distribution Width 15.3 % (11.6-14.8); White Blood Cell Count 5.7 X10^3/uL (4.5-11.0)
[2023-05-03 07:51] VITALS: BP 125/49; PULSE 75; RESP 18; TEMP 35.8; O2SAT 99
--- NOTE | 2023-05-03 07:53 | PM.PNPO.1 ---
Subjective Subjective Date Patient Seen: 05/03/23 Time Patient Seen: 07:53 Interval history: Patient states his left hip pain is mild. Denies fever or chills. No nausea or vomiting. Denies shortness of breath or chest pain. Patient was able to walk a short distance with physical therapy. Patient denies having any dizziness. Exam Vital Signs (past 8 hours): - 05/03/23 00:00 05/03/23 03:48 05/03/23 07:51 Temperature 96.9 F L 96.7 F L 96.5 F L Pulse Rate 86 73 75 Respiratory Rate 12 14 18 Blood Pressure 100/51 L 125/38 L 125/49 L Pulse Oximetry 97 95 99 Oxygen Flow Rate 0 Oxygen Delivery Method Room Air Oxygen Flow Rate 0 Narrative Exam Narrative: 79-year-old male resting comfortably in bed in no apparent distress. Dressing is clean, dry and intact. Mild swelling generally about the left upper leg. Calf is soft and nontender. Motor functions intact distal left lower extremity. Left leg is warm and dry. Sensation is grossly intact to light touch distal left lower extremity. Const General: cooperative and comfortable Nutritional Appearance: average body habitus Orientation: oriented x3 Resp Effort & Inspection: normal respiratory effort and able to speak in complete sentences Objective Labs 05/03/23 04:25 05/01/23 06:50 Labs: Laboratory Results - last 24 hr 05/03/23 04:25 WBC 5.7 RBC 2.65 L Hgb 7.7 L Hct 22.6 L MCV 85.3 MCH 28.9 MCHC 33.9 RDW 15.3 H Plt Count 102 L Neut % (Auto) 83.7 H Lymph % (Auto) 5.0 L [place] % (Auto) 10.0 Eos % (Auto) 1.1 L Baso % (Auto) 0.2 Neut # (Auto) 4800 Lymph # (Auto) 300 L [place] # (Auto) 600 Eos # (Auto) 100 Baso # (Auto) 0 PFSH Medical History Memory loss Right wrist fracture (01/13/23) HLD (hyperlipidemia) HTN (hypertension) Surgical History Hx of arthroscopy of left knee (07/18/12) S/P TURP (status post transurethral resection of prostate) Hx of arthroscopy of left knee (09/26/04) Hx of hernia repair (02/2010) Hx of colonoscopy (10/17/08) Hx of appendectomy (1956) S/P cervical spinal fusion (09/1983) History of carpal tunnel surgery of right wrist (11/2022) Hx of bilateral cataract extraction 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 Patient currently asymptomatic. Acute blood loss anemia secondary to blood loss during surgery patient was consulted due to hypotension. Patient received 1 unit of packed red blood cells on April 30, 2023. Patient will mobilize with physical therapy this morning. Continue to monitor closely. If patient remains asymptomatic may discharge home today or tomorrow with home health services. Quality VTE Deep Vein Thrombosis/Pulmonary Embolism Present on Admission: Yes
[2023-05-03] MEDS: SERTRALINE 50 MG TABLET 25 MG PO (08:24)
[2023-05-03] MEDS: DOCUSATE 100 MG CAPSULE PO (08:24)
[2023-05-03] MEDS: LORATADINE 10 MG TABLET PO (08:24)
[2023-05-03] MEDS: MEMANTINE HCL 5 MG TABLET PO (08:25)
[2023-05-03] MEDS: TAMSULOSIN 0.4 MG CAPSULE 0.8 MG PO (08:25)
[2023-05-03] MEDS: polyethylene glycoL 3350 17 GM POWD.PACK PO (08:25)
[2023-05-03] MEDS: ASPIRIN EC 81 MG TABLET PO (08:25)
[2023-05-03] MEDS: MELOXICAM 7.5 MG TABLET 15 MG PO (08:25)
[2023-05-03] MEDS: DONEPEZIL 5 MG TABLET PO (08:31)
[2023-05-03 08:48] VITALS: BP 97/50; PULSE 74
--- NOTE | 2023-05-03 09:49 | PT.IPTN ---
Current Diagnoses Acute posthemorrhagic anemia (04/30/23) Postprocedural hypotension (04/30/23) Broken internal joint prosthesis, unspecified site, subsequent encounter (04/30/23) Presence of unspecified artificial hip joint (04/30/23) Surgery Performed Operation Date: 04/30/23 13:45 Actual Procedures p Total Hip Arthroplasty Revision(Left) - Dean Kirkland MD Physical Therapy Treatment Note M2 PT-IP Current Condition Start: 05/01/23 15:06 Freq: NEEDED Status: Active Protocol: Document 05/01/23 11:10 AB (Rec: 05/01/23 15:15 AB [id number]) Physical Therapy Current Condition Current Condition Evaluation Date 05/01/23 Treatment Diagnosis s/p L ANDREW revision anterior; difficulty in walking Onset Date 04/30/23 M3 PT-IP Subjective Start: 05/01/23 15:06 Freq: NEEDED Status: Active Protocol: Document 05/03/23 09:49 AW (Rec: 05/03/23 11:04 AW [id number]) Subjective Physical Therapy Visit Type Type Treatment Note Visit Start Time 09:10 Visit Stop Time 09:49 Notes H&H is 7.7/22.6 today - down from 8.4/23.9 yesterday. Number of CHART SNATCHER Visits 0 Physical Therapy Visit Comments Patient Comments Pt is willing to work with PT, feels good, and is hoping to discharge soon. Therapy Pain Assessment Pain When Pain Assessed During Mobility Pain Present Pain Present Denied Pain M4 PT-IP Mobility and Gait Start: 05/01/23 15:06 Freq: NEEDED Status: Active Protocol: Document 05/03/23 09:49 AW (Rec: 05/03/23 11:04 AW [id number]) PT-Bed Mobility Assessment Supine to Sit Supine to Sit Minimal Assistance,Head of Bed Elevated,Bedrails Scooting Scooting to Edge of Bed Standby Assistance PT-Transfer Assessment Sit to and From Stand Sit to and from Stand Moderate Assistance,1 Person Assistance,Use of Upper Extremities Equipment Transfer Assistive Device Gait Belt,Front Wheeled Walker Transfers Transfer Destination Chair Transfer Technique pt ambulated w/ FWW Transfer Ability Level of Assist Minimal Assistance,1 Person Assistance,Use of Upper Extremities Comments Mobility Comments Pt is resting in bed as PT arrives. BP 97/54 HR 74 at rest. Min A (primarily to move the operative limb) to sit up at EOB with HOB raised and pt does use bed rail to pull himself up. BP in sitting in 92/71 HR 97. Pt stands with max cues (PT and son providing cues) and mod assist. BP in standing is 102/67 HR 80. Pt is mildly symptomatic, stating he feels slightly lightheaded but it does not cause him anyh concern. Pt walks a total of 75 feet using FWW with SBA before returning to the room and entering the bathroom. He uses a urinal is standing at the toilet with good balance. Pt then transfers to the chair with min A to control descent . Pt practices sit to stand 4 more times with progressively fewer cues. Pt continues to require mod assist and max cues for all attempts. BP after activity is 105/33 (MAP 70) and HR 70. Gait Assessment Gait Gait Assistance Required: Standby Assistance,Contact Guard Assist,1 Person Assist Distance (Feet) 75 Able to Maintain Weight Bearing Status Yes During Gait Assistive Devices Assistive Device Gait Belt,Front Wheeled Walker Orthotic/Prosthetic Devices or Brace: No Gait Deviations General Gait Pattern Antalgic,Decreased Stride Length,Decreased Feet Clearance Factors Limiting Gait Function Factors Limiting Gait Function Decreased Activity Tolerance, Decreased Strength,Limited Range of Motion,Pain,Poor Balance,Poor Safety Awareness Comments Gait Comments Pt takes small steps and is encouraged to continue doing so. Per op note, surgeon is only concerned about extension combined with external rotation. Stair Climbing Assessment Comments Stair Climbing Comments No stairs at home. PT-Balance Assessment Sitting Balance and Reactions Static Sitting Balance Ability Good Dynamic Sitting Balance Ability Good Standing Balance and Reactions Static Standing Balance Ability Fair Dynamic Standing Balance Ability Fair Device Used FWW M5 PT-IP Objective Assessments Start: 05/01/23 15:06 Freq: NEEDED Status: Active Protocol: Document 05/01/23 11:10 AB (Rec: 05/01/23 15:15 AB [id number]) Orientation Orientation/Cognition Level of Alertness Alert Orientation Name,Place,Situation Language Function Ability Hard of Hearing Safety Awareness Decreased Safety Awareness Memory Description Short Term Impaired Muscle Tone Muscle Tone WNL Yes M6 PT-IP Treatment Start: 05/01/23 15:06 Freq: NEEDED Status: Active Protocol: Document 05/03/23 09:49 AW (Rec: 05/03/23 11:04 AW [id number]) Physical Therapy Treatment Education Education Provided Precautions,Safety Other Treatments Other Treatment Performed Continued caregiver training with emphasis on sit to stand transfers. M7 PT-IP Assessment and Plan Start: 05/01/23 15:06 Freq: NEEDED Status: Active Protocol: Document 05/03/23 09:49 AW (Rec: 05/03/23 11:04 AW [id number]) PT Summary Assessment and Plan Potential Rehabilitation Potential Fair Summary Impairments Pain,ROM,Strength,Balance, Coordination,Sensation,Tone, Cognition,Bed Mobility, Transfers,Gait,Activity Tolerance Progress Towards Goals Progressing Toward Goals,Slow Progress - Other Assessment Summary Pt and his son are present and participate fully. Both are aware of precautions and pt's son is able to provide appropriate cues during all mobility. Pt struggles most with sit to stand transfers and PT spent extra time reviewing today. Pt's BP was low but stable througout session and pt denies all symptoms other than mild lightheadedness initially, improved with activity. Anticipate safe discharge home with family to assist. Recommend home PT to continue strengtheing and transfer training. Goals Bed Mobility Goal Standby Assistance Transfer Goal Standby Assistance,Front Wheeled Walker Gait Goal Standby Assistance,Front Wheel Walker Gait Distance 200 Other Goals improve transfers and ambulation using 3WW mod I ~ 300 ft Days to Meet Goals 5 Frequency of Treatment Frequency Of Treatment Twice a Day Treatment Plan Physical Therapy Treatment Plan Bed Mobility Training,Transfer Training,Gait Training, Therapeutic Exercise,Balance Retraining,Post Op Education, Discharge Planning,Hot or Cold Pack,Neuromuscular Re-ed, Coordination Retraining,Manual Therapy Precautions Anterior Hip Precautions No Hip Extension,No Hip External Rotation Weight Bearing Status Weight Bearing Status Weight Bear as Tolerated Allowed Weight Bearing Amount (enter % LLE WBAT or #) (%) Recommendations To Nursing Amount of Assist Needed Standby Assistance,1 Person Assist Discharge Recommendations PT Discharge Recommendations Home with 19/10 Assist Available,Home Health Transportation Needs at Discharge Private Vehicle,Wheelchair/ Cabulance
--- NOTE | 2023-05-03 11:11 | PM.DS.1 ---
History of Present Illness History of Present Illness Date Patient Seen: 05/03/23 Time Patient Seen: 11:12 Chief complaint: Hip pain Narrative: See progress note Discharge Providers Provider Date of admission: 04/30/23 11:50 Discharge Date: 05/03/23 Primary care physician: Rock Montenegro DO Consults: 04/29/23 20:20 Consult to Anesthesiology Routine Comment: Consulting Provider: Anesthesiologist Reason for consultation: Regional block for post operative pain control 05/01/23 02:08 Consult to Discharge Planning Routine Comment: HHPT needed per Dr Kirkland Consult to Occupational Therapy Evaluate & Treat Comment: Physician Instructions: Evaluate and treat Consult to Physical Therapy Evaluate & Treat Comment: Physician Instructions: post op ANDREW protocol 05/01/23 09:16 Consult to Home Health Routine Comment: Reason For Exam: Home health services upon discharge Discharge provider: Nino Figueredo PA-C Summary Hospital Course Discharge Diagnosis: Revision left total hip arthroplasty with acetabular component liner exchange from polyethylene 2 modular dual mobility and femoral stem exchange, fixation of left femoral fracture with cerclage cables. Anemia secondary to acute blood loss during surgery Status at Discharge Cognitive/behavioral status at discharge: at baseline, oriented Functional status at discharge: uses cane/walker Overall status at discharge: patient is progressing back to baseline Exam Vital Signs (past 8 hours): - 05/03/23 03:48 05/03/23 07:51 05/03/23 08:48 Temperature 96.7 F L 96.5 F L Pulse Rate 73 75 74 Respiratory Rate 14 18 Blood Pressure 125/38 L 125/49 L 97/50 L Pulse Oximetry 95 99 Oxygen Flow Rate 0 Oxygen Delivery Method Room Air Oxygen Flow Rate 0 Narrative Exam Narrative: See progress note Objective Labs 05/03/23 04:25 05/01/23 06:50 Labs: Laboratory Results - last 24 hr 05/03/23 04:25 WBC 5.7 RBC 2.65 L Hgb 7.7 L Hct 22.6 L MCV 85.3 MCH 28.9 MCHC 33.9 RDW 15.3 H Plt Count 102 L Neut % (Auto) 83.7 H Lymph % (Auto) 5.0 L [place] % (Auto) 10.0 Eos % (Auto) 1.1 L Baso % (Auto) 0.2 Neut # (Auto) 4800 Lymph # (Auto) 300 L [place] # (Auto) 600 Eos # (Auto) 100 Baso # (Auto) 0 PFSH Medical History Memory loss Right wrist fracture (01/13/23) HLD (hyperlipidemia) HTN (hypertension) Surgical History Hx of arthroscopy of left knee (07/18/12) S/P TURP (status post transurethral resection of prostate) Hx of arthroscopy of left knee (09/26/04) Hx of hernia repair (02/2010) Hx of colonoscopy (10/17/08) Hx of appendectomy (1956) S/P cervical spinal fusion (09/1983) History of carpal tunnel surgery of right wrist (11/2022) Hx of bilateral cataract extraction 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 Patient did receive 1 unit of packed red blood cells on April 30, 2023. Plan of Treatment: Multimodal pain management Aspirin 81 mg b.i.d. for DVT prophylaxis Weight-bearing as tolerated Follow up outpatient orthopedic clinic in 2 weeks Discharge home with home health PT Discharge Plan Discharge Plan Provider Discharge Comment: Follow up at [facility] in 2 weeks Discharge orders & Medications Discharge Orders: Discharge (Order); Ordered 05/03/23 Ordered By: Nino Figueredo Prescriptions: New docusate sodium 100 mg Capsule 100 mg PO BID PRN (Reason: constipation) Qty: 60 1RF oxycodone 5 mg Tablet 5 mg PO Q4-6H PRN (Reason: Pain, Moderate (4-6)) Qty: 40 0RF acetaminophen 325 mg Tablet 650 mg PO Q6H Qty: 60 0RF aspirin 81 mg Tablet,Delayed Release (Dr/Ec) 81 mg PO BID Qty: 60 0RF polyethylene glycol 3350 17 gram Powder In Packet 17 gm PO DAILY PRN (Reason: Constipation) Qty: 10 0RF oxycodone 10 mg Tablet 5 mg PO Q3H PRN (Reason: Pain, Severe (7-10)) Qty: 30 0RF omeprazole 20 mg capsule,delayed release(DR/EC) 20 mg PO DAILY Qty: 30 0RF Continued atorvastatin 20 mg Tablet 20 mg PO BEDTIME donepezil 5 mg Tablet 5 mg PO DAILY Patient Comments: Takes at 0900 meloxicam 15 mg Tablet 15 mg PO DAILY Patient Comments: Takes at 0630 amlodipine 5 mg Tablet 5 mg PO DAILY Patient Comments: Takes at 0630 tamsulosin 0.4 mg Capsule 0.8 mg PO BID desloratadine [Clarinex] 5 mg Tablet 5 mg PO DAILY Patient Comments: Takes 0900 sertraline 25 mg Tablet 25 mg PO DAILY Patient Comments: Takes at 0630 finasteride 1 mg Tablet 1 mg PO DAILY Patient Comments: Takes at 0900 memantine 5 mg Tablet 5 mg PO BID Patient Comments: Takes at 0630 amlodipine 5 mg tablet 5 mg PO DAILY Discontinued ibuprofen 200 mg Tablet 200 mg PO TID Follow up/Referrals: Rock Montenegro DO [Primary Care Provider] - Dean Kirkland MD [Physician] - 05/11/23 1:30 am (Follow up w/ Dr Kirkland at [facility] in [place].) Diet/Activity/Treatments Diet: Diet as Tolerated Activity: Weightbearing as tolerated to left leg. Anterior hip precautions. Cold/Heat Therapy: Ice to hip as needed for pain. Skin/Wound/Dressing Care Report to your healthcare provider any signs of infection, such as:: chills, fever, night sweats, unusual drainage and unusual redness Dressing: May shower. Leave dressing in place until follow up in office. No bathing or otherwise soaking incision. Call the office if the dressing becomes saturated inside. Special Rehabilitation Services Reason for rehabilitation: Post-operative therapy Rehab type: Physical therapy Visit Report/Discharge Packet Instructions: DI for Hip Replacement, DI for Prescription Opioid Use Stand Alone Forms: Congestive Heart Failure, Patient Portal/API, Stroke Signs & Symptoms, Surgery Discharge Discharge Data Primary Care Provider: Rock Montenegro Quality VTE Deep Vein Thrombosis/Pulmonary Embolism Present on Admission: Yes
[2023-05-03 12:00] VITALS: BP 111/48; PULSE 57; RESP 18; TEMP 36.2; O2SAT 99
--- NOTE | 2023-05-03 12:10 | OT.IP.EVAL ---
Current Diagnoses Acute posthemorrhagic anemia (04/30/23) Postprocedural hypotension (04/30/23) Broken internal joint prosthesis, unspecified site, subsequent encounter (04/30/23) Presence of unspecified artificial hip joint (04/30/23) Surgery Performed Operation Date: 04/30/23 13:45 Actual Procedures p Total Hip Arthroplasty Revision(Left) - Dean Kirkalnd MD Past Medical History (Last Reviewed 04/30/23 @ 22:22 by Antonio Meade MD) HLD (hyperlipidemia) HTN (hypertension) Memory loss Right wrist fracture (01/13/23) Surgical History (Last Reviewed 04/30/23 @ 22:22 by Antonio Meade MD) History of carpal tunnel surgery of right wrist (11/2022) 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) 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) Hx of appendectomy (1956) Hx of arthroscopy of left knee (09/26/04) Hx of arthroscopy of left knee (07/18/12) Hx of bilateral cataract extraction Hx of colonoscopy (10/17/08) Hx of hernia repair (02/2010) S/P cervical spinal fusion (09/1983) S/P TURP (status post transurethral resection of prostate) Occupational Therapy Inpatient Evaluation/Re-Eval M1 PT/OT-IP Prior Functional Status Start: 05/01/23 15:06 Freq: NEEDED Status: Active Protocol: Document 05/03/23 12:15 CGR (Rec: 05/03/23 12:38 CGR [id number]) Medical Review Prior Functional Status Medical History Reviewed Yes Communication able to make needs known; pt is is [employer] Mobility and Gait pt stated that pt was modified independent with all mobilities using a 3WW but limited due to hip pain and knee pain Activities of Daily Living and IADL's Pt was MOD I for all ADLs but states it takes a long time. Pt uses a sock aide for donning socks and requires extra time for all dressing. Pt drives and his daughter often brings food. Social History Household Members none Living Arrangements Apartment/Condo Number of Floors (Floors) One Floor Number of Stairs To Enter/Railing? elevator to access Home Environment High Toilet,Walk in Shower, Elevator Home Equipment Front Wheel Walker,Manual Wheelchair,Shower Seat with Backrest,Hand Held Shower,Lift Recliner,Grab Bars Near Toilet,Grab Bars In Shower Employment Status Retired Additional Social History Comment pt's son plans to stay with pt to assist as long as needed pt also has a transport chair and a flat bed M2 OT-IP Current Condition Start: 05/03/23 12:15 Freq: Status: Active Protocol: Document 05/03/23 12:15 CGR (Rec: 05/03/23 12:38 CGR [id number]) Occupational Therapy Current Condition Current Condition Evaluation Date 05/03/23 Treatment Diagnosis L hip revision Diagnosis Onset Date 04/30/23 Post Operative Precautions Posterior Hip Precautions No Hip Flexion > 90 degrees,No Hip Internal Rotation,No Hip Adduction Weight Bearing Status Weight Bearing Status Weight Bear as Tolerated M3 OT- IP Subjective and Pain Start: 05/03/23 12:15 Freq: Status: Active Protocol: Document 05/03/23 12:15 CGR (Rec: 05/03/23 12:38 CGR [id number]) OT- Subjective Occupational Therapy Visit Type Type Initial Evaluation Visit Start Time 11:12 Visit Stop Time 12:10 OT Pain Assessment Pain When Pain Assessed At Rest Pain Present Pain Present Denied Pain M4 OT- IP ADL's Start: 05/03/23 12:15 Freq: Status: Active Protocol: Document 05/03/23 12:15 CGR (Rec: 05/03/23 12:38 CGR [id number]) OT [id number] General Evaluation Self-Feeding Ability Independent Comments OT Self-Feeding Comments lunch arrived at end of session. OT ADL-Grooming Comments OT Grooming Comments not performed, pt states he performed earlier OT ADL-Oral Care Comments Oral Care Comments not performed, pt states he performed earlier OT ADL-Dressing General Eval Lower Body Dressing Ability Minimal Assistance,Total Assistance Areas Needing Assistance Pants/Shorts,Socks Comments OT Dressing Comments Pt uses a sock aid at home for donning socks, pt needed min a for donning pants today. Attempted to teach use of zipper trimmer hand but pt requesting to try without. Needed multiple tries but was able to perform with little assist. OT ADL-Toileting General Evaluation Toileting Ability Minimal Assistance Areas Needing Assistance Manage Clothing Comments OT Toileting Comments Pt needed min a for managing clothing. OT ADL-Bathing Comments OT Bathing Comments not performed M5 OT- IP IADL's Start: 05/03/23 12:15 Freq: Status: Active Protocol: Document 05/03/23 12:15 CGR (Rec: 05/03/23 12:38 CGR [id number]) OT-Instrumental Activities of Daily Living Deficits IADL Deficits Identified No Deficits Home Safety Awareness Awareness of Need for Assistance at Home Good Awareness Ability to Problem Solve Emergency Able to Problem Solve Situations Medication Management Medication Management Caregiver Administers Money Management Money Management Caregiver Provides Assistance Meal Preparation Meal Preparation Caregiver Provides Assist Senior Chemical Engineer Senior Chemical Engineer Caregiver Provides Assist Driving Driving Comments 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 M6 OT- IP Functional Cognition Start: 05/03/23 12:15 Freq: Status: Active Protocol: Document 05/03/23 12:15 CGR (Rec: 05/03/23 12:38 CGR [id number]) Cognitive Factors Limiting Selfcare Function Cognitive Ability Level of Alertness Alert Patient Orientation Name,Age,Birthday,Month,Date, Year,Day of Week,Place, Situation Attention Span Ability Capable of Focused Attention, Capable of Sustained Attention Ability to Follow Commands Able to Follow One Step Commands with Increased Time, Able to Follow One Step Commands with Repetition Memory Description No Deficits Noted Safety Awareness No Deficits Noted OT- Vision and Hearing OT- Hearing Assessment OT- Hearing Assessment Hearing Impaired,Use of Hearing Aids OT- Vision Assessment Visual Acuity Glasses All The Time Visual Attentiveness WFL Occular Pursuits WFL Visual Convergence WFL M7 OT- IP Mobility and Balance Start: 05/03/23 12:15 Freq: Status: Active Protocol: Document 05/03/23 12:15 CGR (Rec: 05/03/23 12:38 CGR [id number]) OT-Transfer Assessment Sit to and From Stand Sit to and from Stand Minimal Assistance Transfers Transfer Ability Contact Guard Assistance Technique Transfer Destination Chair,Toilet Transfer Technique Stand Step Pivot Devices Transfer Assistive Devices Gait Belt,Front Wheeled Walker Comments Mobility Comments Pt needs assist with sit to stand and vc for stand to sit. Pt tends to drop into the chair which his daughter states is a habit he has had for years. OT- Gait Assessment Gait Gait Assistance Required: Standby Assistance,Contact Guard Assist Assistive Devices Assistive Device Gait Belt,Front Wheeled Walker Comments Gait Ability Comments mobility around the room OT- Balance Assessment Sitting Balance and Reactions Static Sitting Balance Ability Fair Dynamic Sitting Balance Ability Fair M8 OT- IP Objective Assessments Start: 05/03/23 12:15 Freq: Status: Active Protocol: Document 05/03/23 12:15 CGR (Rec: 05/03/23 12:38 CGR [id number]) OT Gross Range of Motion Upper Extremity Range of Motion Assessment Right Impaired ROM Impairments R shld impaired. Pt states this is his baseline. OT Strength Upper Extremity Strength Assessment Within Functional Limits Comments Strength Comments R shld not tested, otherwise 5 /5 OT- Coordination Assessment Upper Extremity Finger to Nose Test Within Functional Limits Finger Tapping Test Right UE Impaired Comments Coordination Comments of note, pt's R hand is not as coordinated from carpal tunnel and a R wrist fx. OT-Muscle Tone Assessment Muscle Tone WNL Yes OT Sensation Assessment Edema Edema Absent M9 OT- IP Assessment and Plan Start: 05/03/23 12:15 Freq: Status: Active Protocol: Document 05/03/23 12:15 CGR (Rec: 05/03/23 12:38 CGR [id number]) OT Summary Assessment and Plan Potential Rehabilitation Potential Good Analytic Complexity at Evaluation High Summary OT Impairments Pain,Range of Motion,Balance, Coordination,Functional Mobility,Grooming,Dressing, Toileting,Bathing,Toilet Transfers,Shower Transfers, Activity Tolerance Progress Towards Goals Progressing Toward Goals Assessment Summary Pt presents as a high complexity evaluation s/p admit for L hip revision. Pt has lived with L hip pain for some time and has limited knee fx on that side. Pt needs min a for transfers and min a for toileting and dressing. Pt's family will be present with him at all times upon discharge. Recommend home with family assist. Goals Grooming Goal Independent Dressing Goal Independent Toileting Goal Independent Bathing Goal Independent Toilet Transfer Goal Independent Shower Transfer Goal Independent Days to Meet Goals 10 Frequency of Treatment Frequency Of Treatment Once a Day Treatment Plan OT Treatment Plan ADL Training,Functional Mobility,Patient/Family Education,Discharge Planning Other Treatment Recommendations and Next shower, LB dressing training. Treatment Focus Discharge Recommendations OT Discharge Recommendations Home with Assistance Transportation Needs at Discharge Private Vehicle
--- NOTE | 2023-05-03 12:38 | CM.DPC ---
DCP Discharge Home with HH Per Ortho PA, pt has not needed another transfusion for his H&H and medically stable to d/c home with family assist after PT/OT. Per PT/OT, recommending home with family assist and HH and setting pt up with OT DME and equipment. [place] met bedside with pt and Dtr and confirmed they are agreeable with d/c home today via Dtr POV and preference remains [facility] for additional assist at home. ELLIE Li kindly alerted [facility] of pt discharge home today and faxed d/c summary as they already have F2F and HH orders. [place] updated RN. Plan: Patient to d/c home today via Dtr POV and new [facility] to follow and Dtr and son will provide assist as needed at discharge. [place] Boo MSW
--- NOTE | 2023-05-03 15:00 | PC.NURSE ---
Patient completed P.T. and O.T. today, with his daughter and son at bedside today. Patient eager for discharge home with his family and home health services arranged. Patient's son states they have been in touch with HH and they will be seeing patient tomorrow afternoon. BART dressing remains intact to left hip. Discharge instructions reviewed with patient and his family, they state understanding and have no further questions at this time. IV dc'd by TRAILER PARK MANAGER intact. Patient escorted out via wheelchair by TRAILER PARK MANAGER to discharge to home.
== END 2023-05-03 14:03 | disposition home health service (06) | DRG 466 ==
LOC: AC 14:17 → ICU 19:51 → AC 05-02 16:53
PROVIDERS: Internal Medicine; Orthopaedic Surgery; Physician Assistant; Student in an Organized Health Care Education/Training Program; Admitting Provider Orthopaedic Surgery Adult Reconstructive Orthopaedic Surgery; PCP Family Medicine; Referring Provider Orthopaedic Surgery Adult Reconstructive Orthopaedic Surgery; Visit Provider Orthopaedic Surgery Adult Reconstructive Orthopaedic Surgery
PROC: 0QS904Z Reposition Left Femoral Shaft with Internal Fixation Device, Open Approach (ICD-10-PCS; principal; 2023-04-30 13:45)
DX: T84.031A Mechanical loosening of internal left hip prosthetic joint, initial encounter (principal); S72.002A Fracture of unspecified part of neck of left femur, initial encounter for closed fracture; T81.19XA Other postprocedural shock, initial encounter; D62 Acute posthemorrhagic anemia; M96.810 Intraoperative hemorrhage and hematoma of a musculoskeletal structure complicating a musculoskeletal system procedure; T84.061A Wear of articular bearing surface of internal prosthetic left hip joint, initial encounter; M97.02XA Periprosthetic fracture around internal prosthetic left hip joint, initial encounter; I95.81 Postprocedural hypotension; N40.0 Benign prostatic hyperplasia without lower urinary tract symptoms; F32.A Depression, unspecified; E78.5 Hyperlipidemia, unspecified; I10 Essential (primary) hypertension; X58.XXXA Exposure to other specified factors, initial encounter; Z87.891 Personal history of nicotine dependence
CPT/HCPCS: 36415; 36430; 73502; 76000; 80053; 83735; 84100; 85014; 85018; 85025; 85027; 86850; 86900; 86901; 87070; 87075; 87176; 87205; 97116; 97162; 97167; 97530; 97535; C1776; P9016; J0690; J1100; J2270; J2405; J2704; J3010

== ENCOUNTER → 2023-08-30 10:54 | Outpatient (CLI) | payer MEDICARE, BC, SELFPAY ==
[2023-04-30 21:30] VITALS: BMI 28.9
--- NOTE | 2023-08-30 10:56 | DI.CT.S_ITS ---
PROCEDURE: CT HEAD/BRAIN WO CON INDICATIONS: DISORIENTATION TECHNIQUE: Noncontrast 4.5 mm thick angled axial sections acquired from the foramen magnum to the vertex, with coronal and sagittal reformats. For radiation dose reduction, the following was used: automated exposure control, adjustment of mA and/or kV according to patient size. COMPARISON: [facility], CT, CT HEAD/BRAIN WO CON, 01/13/2023, 22:14. FINDINGS: Image quality: Diagnostic. CSF spaces: Basal cisterns are patent. No extra-axial fluid collections. The ventricles are symmetric in size and shape. Brain: No intracranial bleeds or masses. There is cerebral volume loss for age, with resultant ventricular and sulcal prominence. There are periventricular and deep white matter chronic small vessel ischemic changes. There is intracranial internal carotid artery atherosclerosis. Skull and face: Calvarium and visualized facial bones appear intact, without suspicious lesions. Sinuses: Focal opacification can be seen involving the left posterior ethmoid air cells. Visualized sinuses and mastoids are otherwise clear. IMPRESSION: No imaging explanation is found for this patient's presenting symptoms. No acute intracranial pathology. Dictated by: Samuel Miller M.D. on 08/30/2023 at 10:20 Approved by: Samuel Miller M.D. on 08/30/2023 at 10:21
== END ==
LOC: CT 10:55
PROVIDERS: PCP Family Medicine; Referring Provider Family Medicine; Visit Provider Family Medicine
DX: I65.29 Occlusion and stenosis of unspecified carotid artery (principal); R41.0 Disorientation, unspecified
CPT/HCPCS: 70450